=== PATIENT | male | born 1930 | race Caucasian/White ===

== ENCOUNTER 2018-06-16 15:00 | Inpatient (IN) ==
--- NOTE | 2018-06-16 15:53 | Emergency Department Note ---
Disposition Clinical Impression: Acute CHF, COPD (chronic obstructive pulmonary disease) Disposition: Admitted As Inpatient Condition: Fair Time of Disposition: 17:05 General Adult HPI - General Chief complaint: ED Shortness of Breath/Dyspnea Stated complaint: QUINTON Time Seen by Provider: 06/16/18 15:09 Source: patient Mode of arrival: ambulatory Limitations: no limitations Nursing Notes Reviewed: Yes Vital Signs Reviewed: Yes - History of Present Illness HPI Narrative: Patient is an 87-year-old male with a past medical history of COPD, CABG 2, 1 cardiac stent and chronically on 2 L nasal cannula presents to the emergency department for evaluation of 2 weeks of coughing with no improvement. Patient states that he was seen one week ago by an urgent care and given a Z-Sukhwinder and to ld it was acute bronchitis however his symptoms have not improved. The patient states that he has this continuous cough that will not stop due to like a scratch in his throat. He denies any fevers, states the cough intermittently brings up phlegm, denies increased oxygen requirements, denies chest pain, denies worsening lower extremity edema. States that he frequently has episodes of acute bronchitis due to the condition of his lungs and sees Dr. Rosario for pulmonology. Pain Scale: 3 - Related Data Previous Rx's Medication Instructions Recorded Albuterol Sulfate [Albuterol 4 puff IH Q4HR #1 hfa.aer.ad 09/09/16 Inhaler] Levofloxacin [Levaquin] 750 mg PO DAILY #5 tablet 09/09/16 predniSONE [PredniSONE] 60 mg PO ONCE 5 Days tablet 09/09/16 Albuterol Sulfate [Albuterol 2 puff IH Q6HR #1 inh 06/11/17 Inhaler] Azithromycin [Zithromax] 250 mg PO DAILY #6 tablet 06/11/17 predniSONE [PredniSONE] 60 mg PO DAILY #15 tablet 06/11/17 Allergies Allergy/AdvReac Type Severity Reaction Status Date / Time morphine Allergy Hives Verified 06/16/18 17:55 Hydromorphone [From Dilaudid] AdvReac Vomiting Verified 06/16/18 17:56 All systems ED: reviewed and negative except as stated. Review of Systems: As Per HPI Constitutional: Denies: fever, chills Cardiovascular: Denies: chest pain, palpitations Respiratory: Reports: cough, sputum production. Denies: dyspnea, wheezes Gastrointestinal: Denies: abdominal pain, nausea, vomiting Musculoskeletal: Denies: back pain Integumentary: Denies: rash Past Medical History - Past Medical History Attestation: Yes The following information was validated with the patient. Medical history: Reports: COPD, coronary artery disease, diabetes, hyperlipidemia, hypertension, myocardial infarction, renal disease Psychiatric history: Reports: no psych history - Social History Smoking Status: Never smoker Smokeless Tobacco Status: No Alcohol use: Reports: none Drug use: Reports: none Physical Exam CONSTITUTIONAL: A&O X 3, in no apparent distress. Patient saturation is 95% on 2LNC HEAD: Normocephalic; atraumatic EYES: PERRL, no scleral icterus NOSE: The nose is normal in appearance without rhinorrhea NECK: No JVD or distended neck veins RESP: Normal chest excursion with respiration; patient has mild wheezing throughout and crackles in the RLL. CARD: Regular rhythm, without murmurs, rub or gallop ABD: Non-distended; non-tender, soft, without rigidity, rebound or guarding,no pulsatile mass CHEST: No pain with palpation SKIN: Normal for age and race; warm and dry without diaphoresis ; no apparent lesions EXTREMITIES: Pulses are 2 plus and equal times 4 extremities, mild pitting edema bilaterally, slightly worse in the RLE. - General Limitations: no limitations General appearance: alert Course Course Narrative: Patient presents for primarily evaluation of a cough that has been going on for 2 weeks and is refractory to antibiotics. On exam the patient did have mild wheezing throughout, however he does not appear to be in respiratory distress. Crackles were appreciated in the patient's right lower lung base, however the pa tiedex states that this is a chronic finding and this is usually commented on during his physical exams and nothing new. The patient also states that he usually has edema in his lower chin these and is not worse than usual and that his right extremity is usually more edematous than the left so there are no new changes there. Therefore no new clinical exam findings. Patient does have an active cough when in the room that sounds dry in nature. Plan at this time is to evaluate him for any cardiac ideology of his symptoms given his history of CABG and stents. As well as a COPD history. - Reevaluation(s) Reevaluation #1: Patient chest x-ray shows mild pulmonary vascular congestion which is worsened from prior study. His BNP is slightly elevated which is typically normal. The setting of the patient's current presentation plan is times a treat him for COPD as well as CHF. The patient was even IV dose of Lasix. He received steroids as well as a dose of antibiotics for COPD exacerbation. Patient will come in the hospital for further management. Discussed patient's case with the hospitalist and she agrees to accept the patient. Time: 17:24 Vital Signs Temperature 97.7 F 06/16/18 15:05 Pulse Rate 77 06/16/18 15:05 Respiratory Rate 20 06/16/18 15:05 Blood Pressure 153/78 06/16/18 15:05 O2 Sat by Pulse Oximetry 89 06/16/18 15:05 Temperature 97.7 F 06/16/18 15:10 Pulse Rate 82 06/16/18 17:49 Respiratory Rate 18 06/16/18 17:49 Blood Pressure 168/72 06/16/18 17:49 O2 Sat by Pulse Oximetry 96 06/16/18 17:49 Oxygen Delivery Oxygen Delivery Nasal Cannula Medical Decision Making - Medical Records Medical records reviewed: Yes I reviewed the patient's medical records. - Lab Data Lab results reviewed: Yes I reviewed the patient's lab results. Result diagrams: 06/16/18 15:41 06/16/18 15:41 Lab Results 06/16/18 06/16/18 06/16/18 Range/Units 15:41 15:41 15:41 WBC 5.4 (4.3-11.1) K/mcL RBC 3.56 L (4.19-5.50) M/mcL Hgb 10.9 L (12.9-16.9) g/dL Hct 34.6 L (37.5-50.1) % MCV 97.2 (83.0-100.0) fL MCH 30.6 (28.0-33.3) pg MCHC 31.5 L (31.6-35.5) g/dL RDW 14.2 (11.5-14.5) % Plt Count 231 (140-400) K/mcL MPV 10.2 (9.4-12.4) fL Immature Gran % 0.9 (0-4) % Seg Neutrophils % 65.2 % Lymphocytes % 16.7 % Monocytes % 10.0 % Eosinophils % 5.9 % Basophils % 1.3 % Neutrophils # 3.5 (1.6-8.9) K/mcL Lymphocytes # 0.9 (0.6-4.6) K/mcL Monocytes # 0.5 (0.0-1.3) K/mcL Eosinophils # 0.3 (0.0-0.6) K/mcL Basophils # 0.1 (0.0-0.2) K/mcL Sodium 140 (136-145) mEq/L Potassium 4.4 (3.5-5.1) mEq/L Chloride 100 (98-107) mEq/L Carbon Dioxide 28 (23-29) mEq/L BUN 38 H (8-23) mg/dL Creatinine 2.67 H (0.70-1.30) mg/dL Est GFR ( Amer) 28 L (> 60) Est GFR (Non-Af Amer) 23 L (> 60) BUN/Creatinine Ratio 14 (6-26) Glucose 174 H (70-105) mg/dL Calculated Osmolality 303 H (280-300) Calcium 9.2 (8.6-10.3) mg/dL Troponin I < 0.03 (< 0.04) ng/mL B-Natriuretic Peptide 361 H (Less than 100) pg/mL - Radiology Data Radiology results reviewed: Yes I reviewed the patient's radiology results. Chest X-Ray 06/16/18 15:20 IMPRESSION: 1. Findings are most suggestive of pulmonary interstitial edema with trace bilateral pleural effusions. Correlation with volume status is recommended. 2. Persistently enlarged cardiomediastinal silhouette. D/ / Wagner Perla MD / Wagner Perla MD Interpreting Provider: Wagner Perla MD - EKG Data EKG #1 EKG attestation: Yes I reviewed and interpreted this EKG. EKG results narrative: EKG done at 15:19 shows sinus rhythm at a rate of 73 bpm. Normal axis. Intervals within normal limits. Patient does have very minimal elevations in the inferior leads, however when impaired to old EKG on June [id number] this was within normal limits. Attestation Statement - Attestation Attestation: I, Douglas Kendrick DO, examined this patient [id number] and my medical decision-making was reviewed with Dr. Mega Read, Resident Physician. I agree with the documented findings, disposition and treatment plan as described except to the extent set forth below. Please see my progress notes for details.
[2018-06-16] MEDS ORDERED: Ipratropium/Albuterol Neb 3 ML IH ONE (16:07)
[2018-06-16 16:13] LABS: Basophils # 0.1 K/mcL (0.0-0.2); Basophils % 1.3 %; Eosinophils # 0.3 K/mcL (0.0-0.6); Eosinophils % 5.9 %; Hematocrit 34.6 % (37.5-50.1); Hemoglobin 10.9 g/dL (12.9-16.9); Immature Granulocytes % 0.9 % (0-4); Lymphocytes # 0.9 K/mcL (0.6-4.6); Lymphocytes % 16.7 %; Mean Corpuscular HGB Conc 31.5 g/dL (31.6-35.5); Mean Corpuscular Hemoglobin 30.6 pg (28.0-33.3); Mean Corpuscular Volume 97.2 fL (83.0-100.0); Mean Platelet Volume 10.2 fL (9.4-12.4); Monocytes # 0.5 K/mcL (0.0-1.3); Neutrophils # 3.5 K/mcL (1.6-8.9); Platelet Count 231 K/mcL (140-400); Red Blood Count 3.56 M/mcL (4.19-5.50); Red Cell Distribution Width 14.2 % (11.5-14.5); Segmented Neutrophils % 65.2 %
[2018-06-16 16:29] LABS: BUN/Creatinine Ratio 14 (6-26); Blood Urea Nitrogen 38 mg/dL (8-23); Calcium 9.2 mg/dL (8.6-10.3); Carbon Dioxide 28 mEq/L (23-29); Chloride 100 mEq/L (98-107); Glucose 174 mg/dL (70-105); Osmolality,Calculated 303 (280-300); Potassium 4.4 mEq/L (3.5-5.1); Sodium 140 mEq/L (136-145); eGFR For Non-African Americans 23 (> 60)
[2018-06-16 16:31] LABS: Troponin I < 0.03 ng/mL (< 0.04)
--- NOTE | 2018-06-16 16:45 | Emergency Department Note ---
Disposition Clinical Impression: Acute CHF, COPD (chronic obstructive pulmonary disease) Disposition: Admitted As Inpatient Condition: Fair Time of Disposition: 17:59 General Adult HPI - General Chief complaint: ED Shortness of Breath/Dyspnea Stated complaint: QUINTON Time Seen by Provider: 06/16/18 15:09 Source: patient Mode of arrival: ambulatory Limitations: no limitations - History of Present Illness Pain Scale: 3 - Related Data Previous Rx's Medication Instructions Recorded Albuterol Sulfate [Albuterol 4 puff IH Q4HR #1 hfa.aer.ad 09/09/16 Inhaler] Levofloxacin [Levaquin] 750 mg PO DAILY #5 tablet 09/09/16 predniSONE [PredniSONE] 60 mg PO ONCE 5 Days tablet 09/09/16 Albuterol Sulfate [Albuterol 2 puff IH Q6HR #1 inh 06/11/17 Inhaler] Azithromycin [Zithromax] 250 mg PO DAILY #6 tablet 06/11/17 predniSONE [PredniSONE] 60 mg PO DAILY #15 tablet 06/11/17 Allergies Allergy/AdvReac Type Severity Reaction Status Date / Time morphine Allergy Hives Verified 06/16/18 17:55 Hydromorphone [From Dilaudid] AdvReac Vomiting Verified 06/16/18 17:56 Constitutional: Denies: fever, chills Cardiovascular: Denies: chest pain, palpitations Respiratory: Reports: cough, sputum production. Denies: dyspnea, wheezes Gastrointestinal: Denies: abdominal pain, nausea, vomiting Musculoskeletal: Denies: back pain Integumentary: Denies: rash Past Medical History - Past Medical History Medical history: Reports: COPD, coronary artery disease, diabetes, hyperlipidemia, hypertension, myocardial infarction, renal disease Psychiatric history: Reports: no psych history - Social History Smoking Status: Never smoker Smokeless Tobacco Status: No Alcohol use: Reports: none Drug use: Reports: none Physical Exam - General Limitations: no limitations General appearance: alert Course Vital Signs Temperature 97.7 F 06/16/18 15:05 Pulse Rate 77 06/16/18 15:05 Respiratory Rate 20 06/16/18 15:05 Blood Pressure 153/78 06/16/18 15:05 O2 Sat by Pulse Oximetry 89 06/16/18 15:05 Temperature 97.7 F 06/16/18 15:10 Pulse Rate 82 06/16/18 17:49 Respiratory Rate 18 06/16/18 17:49 Blood Pressure 168/72 06/16/18 17:49 O2 Sat by Pulse Oximetry 96 06/16/18 17:49 Oxygen Delivery Oxygen Delivery Nasal Cannula Medical Decision Making - Lab Data Result diagrams: 06/16/18 15:41 06/16/18 15:41 Lab Results 06/16/18 06/16/18 06/16/18 Range/Units 15:41 15:41 15:41 WBC 5.4 (4.3-11.1) K/mcL RBC 3.56 L (4.19-5.50) M/mcL Hgb 10.9 L (12.9-16.9) g/dL Hct 34.6 L (37.5-50.1) % MCV 97.2 (83.0-100.0) fL MCH 30.6 (28.0-33.3) pg MCHC 31.5 L (31.6-35.5) g/dL RDW 14.2 (11.5-14.5) % Plt Count 231 (140-400) K/mcL MPV 10.2 (9.4-12.4) fL Immature Gran % 0.9 (0-4) % Seg Neutrophils % 65.2 % Lymphocytes % 16.7 % Monocytes % 10.0 % Eosinophils % 5.9 % Basophils % 1.3 % Neutrophils # 3.5 (1.6-8.9) K/mcL Lymphocytes # 0.9 (0.6-4.6) K/mcL Monocytes # 0.5 (0.0-1.3) K/mcL Eosinophils # 0.3 (0.0-0.6) K/mcL Basophils # 0.1 (0.0-0.2) K/mcL Sodium 140 (136-145) mEq/L Potassium 4.4 (3.5-5.1) mEq/L Chloride 100 (98-107) mEq/L Carbon Dioxide 28 (23-29) mEq/L BUN 38 H (8-23) mg/dL Creatinine 2.67 H (0.70-1.30) mg/dL Est GFR ( Amer) 28 L (> 60) Est GFR (Non-Af Amer) 23 L (> 60) BUN/Creatinine Ratio 14 (6-26) Glucose 174 H (70-105) mg/dL Calculated Osmolality 303 H (280-300) Calcium 9.2 (8.6-10.3) mg/dL Troponin I < 0.03 (< 0.04) ng/mL B-Natriuretic Peptide 361 H (Less than 100) pg/mL Attestation Statement - Attestation Attestation: I, Douglas Marks DO, examined this patient [id number] and my medical deci tae-making was reviewed with Dr. Mega Read, Resident Physician. I agree with the documented findings, disposition and treatment plan as described except to the extent set forth below. Please see my progress notes for details. 87-year-old male presents to the emergency room for evaluation of cough. Patient has had a persistent cough for home for the last 24-48 hours. He descri bes this is identical to every other fall. Every year at the site time the patient gets a cough secondary to the weather changes and turning on the heat in his home. He does have a history of COPD that requires 2 L of oxygen at home. He has not felt like he needed any more oxygen. He denies any productive cough or sputum. Denies any fevers. He has had intermittent chills but never has collected his temperature. Patient is otherwise clinically stable on presentation here. Vital signs do so slight tachypnea during conversation but he is resting in the bed he has normal pulse ox as well as respirations. Patient does not want to be admitted if possible. He says that every time this happens he gets an antibiotic as well as steroids and he goes home without any problem. He has never required admission for his COPD or emphysema. Head is atraumatic pupils are equal and reactive oropharynx is patent. No stridor no trismus. Trachea is midline. No cervical lymphadenopathy. No meningeal symptoms. Full range of motion the neck is noted. Lungs are diminished bilaterally but appropriate air movement is noted. Heart is regular. Abdomen is soft nontender nondistended no guarding no rigidity no peritoneal symptoms. No pulsatile masses are noted. No signs of pitting edema or swelling in the lower extremities. Patient says that he feels completely comfortable but just needs something to control his cough at home so that he is not up all night long. Breathing treatments to be ordered here along with first dose of IV steroids. Patient also have chest x-ray EKG CBC chemistry troponin and BNP collected here in the emergency room. Patient does have a significant cardiac history including 5 vessel bypass over 2 different surgical procedures. Disposition pending workup and treatment course. Patient will be ambulated prior to leaving our department. See detailed documentation of the physical exam, medical intervention, medical decision-making and disposition in the resident physician's note. No critical care applied to the patient's treatment course at this time. 1700 Patient's BNP is elevated. Patient has never had an elevated BNP before. His chest x-ray looks as if he has significant fluid buildup worse in the left lung compared to the right. Patient did respond appropriately to the breathing treatment here. After lengthy discussion it was determined that the patient lives far from the hospital and the family has some difficulty with returning to the emergency room. They feel more comfortable with him being admitted at this time. Appears to be possible bronchitis, CHF exacerbation, COPD exacerbation. Steroids will be provided here in the emergency room as well as first dose of IV antibiotics. Blood cultures will be collected. Patient does not show any acute signs of sepsis at this point. Clinical evaluation is most consistent with the above-described issues. IV Lasix will be given. Patient does have chronic renal insufficiency and takes Lasix at home and this is an appropriate dosages in the emergency room at a one-time implementation. Patient is otherwise clinically stable and admission process to be established.
[2018-06-16] MEDS ORDERED: Levofloxacin 750 MG/150 ML 750 MG/150 ML BAG IVPB ONE (17:03)
[2018-06-16] MEDS ORDERED: methylPREDNISolone 125 MG/2 ML VIAL IVP STA (17:03)
[2018-06-16] MEDS ORDERED: Furosemide 40 MG/4 ML VIAL IVP ONE (17:24)
[2018-06-16] MEDS ORDERED: Naloxone 0.4 MG/ML INJ IVP PRN ×2 (17:40→17:42)
[2018-06-16] MEDS ORDERED: traMADol 50 MG TABLET PO PRN (17:42)
[2018-06-16] MEDS ORDERED: Acetaminophen 325 MG TABLET PO PRN (17:42)
[2018-06-16] MEDS ORDERED: Ipratropium/Albuterol Neb 3 ML IH PRN (17:44)
[2018-06-16] MEDS ORDERED: D5% in Water 1,000 ML IVC PRN (17:45)
[2018-06-16] MEDS ORDERED: *HR* Dextrose 50 % in Water (Syg) 50 ML SYRINGE IVP PRN (17:45)
[2018-06-16] MEDS ORDERED: Dextrose Gel 15 GM/37.5 ML TUBE PO PRN ×2 (17:45)
--- NOTE | 2018-06-16 17:58 | Internal Med History&Physical ---
Date of Encounter: 06/16/18 Time of Encounter: 17:54 Internal Medicine - H&P: HPI Admitted From: Home Plans for Post Hospital Care: Home History of present illness: Mr. Hunter is a 87 year old male with a past medical history of COPD, CABG 2, 1 cardiac stent and chronically on 2 L nasal cannula, CKD, CHF, DM presents to the emergency department for evaluation of 2 weeks of coughing with no improvement. Patient states that he was seen one week ago at an urgent care and given a Z-Sukhwinder and told it was acute bronchitis however his symptoms have not improved. The patient states that he has this continuous cough that will not stop due to like a scratch in his throat. He denies any fevers, states the cough intermittently brings up phlegm, denies increased oxygen requirements, denies chest pain, denies worsening lower extremity edema. States that he frequently has episodes of acute bronchitis due to the condition of his lungs and sees Dr. Rosario for pulmonology. At the ED, his vital signs were stable, afebrile. CXR showed possible pulmonary edema and peural effusion. Received IV Solu Medro and Duoneb with relief of symptoms. We will admit him for further evaluation and treatment. Past Med Surg Social Fam HX - Past Medical History Medical history: COPD, coronary artery disease, diabetes, hyperlipidemia, hypertension, myocardial infarction, renal disease Psychiatric history: no psych history - Past Surgical History Additional surgical history: CABG X2 - Social History Smoking Status: Never smoker Smokeless Tobacco Status: No Alcohol use: none Drug use: none Internal Medicine - H&P: Meds Albuterol Sulfate [Albuterol Inhaler] 4 puff IH Q4HR #1 hfa.aer.ad 09/09/16 [Rx] Levofloxacin [Levaquin] 750 mg PO DAILY #5 tablet 09/09/16 [Rx] predniSONE [PredniSONE] 60 mg PO ONCE 5 Days tablet 09/09/16 [Rx] Albuterol Sulfate [Albuterol Inhaler] 2 puff IH Q6HR #1 inh 06/11/17 [Rx] Azithromycin [Zithromax] 250 mg PO DAILY #6 tablet 06/11/17 [Rx] predniSONE [PredniSONE] 60 mg PO DAILY #15 tablet 06/11/17 [Rx] Allergy/AdvReac Type Severity Reaction Status Date / Time morphine Allergy Hives Verified 06/16/18 17:55 Hydromorphone [From Dilaudid] AdvReac Vomiting Verified 06/16/18 17:56 All Systems PM: A 10-system review of systems was performed and is negative for pertinent f indings except as documented above in the HPI. - Constitutional Additional comments: REVIEW OF SYSTEMS: CONSTITUTIONAL: No weight loss, fever, chills, weakness or fatigue. HEENT: Eyes: No visual loss, blurred vision, double vision or yellow sclerae. Ears, Nose, Throat: No hearing loss, sneezing, congestion, runny nose or sore throat. SKIN: No rash or itching. CARDIOVASCULAR: see HPI. RESPIRATORY: see HPI. GASTROINTESTINAL: No anorexia, nausea, vomiting or diarrhea. No abdominal pain or blood. GENITOURINARY: No dysuria, urgency, or frequency. NEUROLOGICAL: No headache, dizziness, syncope, paralysis, ataxia, numbness or tingling in the extremities. No change in bowel or bladder control. MUSCULOSKELETAL: No muscle, back pain, joint pain or stiffness. HEMATOLOGIC: No anemia, bleeding or bruising. LYMPHATICS: No enlarged nodes. No history of splenectomy. PSYCHIATRIC: No history of depression or anxiety. ENDOCRINOLOGIC: No reports of sweating, cold or heat intolerance. No polyuria or polydipsia. - Constitutional Vitals: Temp Pulse Resp BP Pulse Ox 97.7 F 82 18 168/72 96 06/16/18 15:10 06/16/18 17:49 06/16/18 17:49 06/16/18 17:49 06/16/18 17:49 General appearance: Present: cooperative, A&O X 3, answers questions appropriately Exam: PHYSICAL EXAMINATION: GENERAL APPEARANCE: The patient is alert, oriented and in no acute distress. HEENT: Head is normocephalic. The sinuses are nontender. Pupils are equal and reactive. The nares are patent. Oropharynx clear without lesions. NECK: Supple without lymphadenopathy. HEART: Regular rate and rhythm. LUNGS: bilateral crackle noted and occasional wheezing. ABDOMEN: Soft, nontender, nondistended with good bowel sounds heard. Inguinal area is normal. EXTREMITIES: 1+ pitting edema. NEUROLOGICAL: Gross nonfocal. SKIN: Warm and dry without any rash. Internal Med - H&P Results - Labs CBC & Chem 7: 06/16/18 15:41 06/16/18 15:41 Labs: Short CBC 06/16/18 Range/Units 15:41 WBC 5.4 (4.3-11.1) K/mcL Hgb 10.9 L (12.9-16.9) g/dL Hct 34.6 L (37.5-50.1) % Plt Count 231 (140-400) K/mcL Neutrophils # 3.5 (1.6-8.9) K/mcL BMP 06/16/18 15:41 Sodium 140 Potassium 4.4 Chloride 100 Carbon Dioxide 28 BUN 38 H Creatinine 2.67 H Glucose 174 H Calcium 9.2 Cardiac Enzymes 06/16/18 Range/Units 15:41 Troponin I < 0.03 (< 0.04) ng/mL - Impressions ITS Impressions Chest X-Ray 06/16/18 15:20 IMPRESSION: 1. Findings are most suggestive of pulmonary interstitial edema with trace bilateral pleural effusions. Correlation with volume status is recommended. 2. Persistently enlarged cardiomediastinal silhouette. D/ / Wagner Perla MD / Wagner Perla MD Interpreting Provider: Wagner Perla MD - Assessment and plan (1) COPD (chronic obstructive pulmonary disease) Current Visit: Yes Status: Acute Assessment and plan: 87-year-old male with past medical history of COPD, CHF, CKD, diabetes, CAD status post CABG and stent placement, and hypertension presented with two-week history of cough and shortness of breath. Diffuse wheezing noted bilaterally on physical exam. Chest x-ray showed possible pulmonary edema. He is mildly volume overloaded on physical exam. - Patient respiratory distress is likely due to combined etiology with COPD and a CHF exacerbation. - Unclear the exact trigger for COPD exacerbation, he was treated with oral antibiotics (azithromycin and Levaquin) but symptoms fail to improve. We will obtain blood culture and sputum culture, and empirically treat with Rocephin and azithromycin IV, as community-acquired pneumonia. - Continue standard treatment for COPD including IV steroids, short acting and long-acting bronchodilators (duoneb and symbicort). - Continue home O2, Flu vaccine if not done. Qualifiers: COPD type: unspecified COPD Qualified Code(s): J44.9 - Chronic obstructive pulmonary disease, unspecified (2) CHF (congestive heart failure) Current Visit: Yes Status: Acute Assessment and plan: History of CHF, takes Lasix 40 mg by mouth at home. Slightly elevated BNP on admission. Last echocardiogram is about 3 years ago. We will repeat echo, increase Lasix dose to 40 mg twice a day IV. Continue home medications. Strict I's and O's, fluid restriction, daily weight, low-salt diet. Qualifiers: Heart failure type: diastolic Heart failure chronicity: acute on chronic Qualified Code(s): I50.33 - Acute on chronic diastolic (congestive) heart failure (3) CKD (chronic kidney disease) stage 4, GFR 15-29 ml/min Current Visit: No Status: Chronic Assessment and plan: Creatinine seems at the baseline, patient still produces urine, he follows up with nephrology regularly. We will consult renal. (4) Diabetes mellitus Current Visit: No Status: Chronic Assessment and plan: Hold all the oral agents, started patient on insulin sliding scale. Qualifiers: Diabetes mellitus type: type 2 Diabetes mellitus residential insulin use: without residential use Diabetes mellitus complication status: with kidney complications Diabetes mellitus complication detail: with chronic kidney disease Chronic kidney disease stage: stage 4 (severe) Qualified Code(s): E11.22 - Type 2 diabetes mellitus with diabetic chronic kidney disease; N18.4 - Chronic kidney disease, stage 4 (severe) (5) CAD (coronary artery disease) Current Visit: No Status: Chronic Assessment and plan: No chest pain, troponin negative, continue telemetry monitoring, and continue home medications. Qualifiers: Coronary Disease-Associated Artery/Lesion type: [place] artery [place] vs. transplanted heart: [place] heart Associated angina: without angina Qualified Code(s): I25.10 - Atherosclerotic heart disease of [place] coronary artery without angina pectoris (6) HTN (hypertension) Current Visit: No Status: Chronic Assessment and plan: BP controlled, continue monitoring, continue home medications. Qualifiers: Hypertension type: essential hypertension Qualified Code(s): I10 - Essential (primary) hypertension (7) DVT prophylaxis Current Visit: Yes Status: Acute Assessment and plan: Heparin subcutaneous. - Time Spent With Patient Total time spent is 90 mins, greater than 50% in coordination of care (as documented) at patient's floor/unit and/or counseling patient. Greater than 35 minutes
[2018-06-16] MEDS: Azithromycin 250 MG in D5% in Water 250 ML IVPB SCH (19:39)
[2018-06-16] MEDS: Ipratropium/Albuterol Neb 3 ML IH SCH ×2 (20:03→23:46)
[2018-06-16] MEDS: Budesonide/Formoterol 80/4.5 MDI IH SCH (20:03)
[2018-06-16] MEDS: *HR* Heparin 5,000 UNIT/ML VIAL SQ SCH (20:50)
[2018-06-16] MEDS: Furosemide 40 MG/4 ML VIAL IVP SCH (20:51)
[2018-06-16] MEDS: cefTRIAXone 1,000 MG in Water for inj. (sterile) 20 ML 10 ML IVP SCH (20:51)
[2018-06-16] MEDS ORDERED: Insulin LISPRO 300 UNITS/3 ML VIAL SQ SCH (21:00)
[2018-06-17] MEDS: MethylPREDNISolone 40 MG/ML VIAL IVP SCH ×2 (01:50→07:36)
[2018-06-17] MEDS: Ipratropium/Albuterol Neb 3 ML IH SCH ×5 (04:38→19:59)
[2018-06-17 05:20] LABS: Basophils % 0.5 %; Hematocrit 33.9 % (37.5-50.1); Hemoglobin 10.7 g/dL (12.9-16.9); Immature Granulocytes % 0.7 % (0-4); Lymphocytes # 0.4 K/mcL (0.6-4.6); Lymphocytes % 10.3 %; Mean Corpuscular HGB Conc 31.6 g/dL (31.6-35.5); Mean Corpuscular Hemoglobin 30.2 pg (28.0-33.3); Mean Corpuscular Volume 95.8 fL (83.0-100.0); Mean Platelet Volume 10.1 fL (9.4-12.4); Monocytes # 0.1 K/mcL (0.0-1.3); Monocytes % 1.5 %; Neutrophils # 3.6 K/mcL (1.6-8.9); Platelet Count 224 K/mcL (140-400); Red Blood Count 3.54 M/mcL (4.19-5.50)
[2018-06-17 05:37] LABS: Calcium 9.4 mg/dL (8.6-10.3); Magnesium 1.9 mg/dL (1.6-2.6); Potassium 4.4 mEq/L (3.5-5.1)
[2018-06-17] MEDS: *HR* Heparin 5,000 UNIT/ML VIAL SQ SCH ×2 (06:50→17:39)
[2018-06-17] MEDS: Metoprolol XL (24 HR) Succ 50 MG TAB.ER.24H PO SCH (07:36)
[2018-06-17] MEDS: Isosorbide MONOnitrate (24 HR) 30 MG TAB.ER.24H PO SCH (07:36)
[2018-06-17] MEDS: amLODIPine 5 MG TABLET PO SCH (07:36)
[2018-06-17] MEDS: Furosemide 40 MG/4 ML VIAL IVP SCH ×2 (07:36→17:38)
[2018-06-17] MEDS: Aspirin 81 MG TAB.CHEW PO SCH (07:37)
[2018-06-17] MEDS: Cholecalciferol (D-3) 1,000 UNIT TABLET PO SCH (07:37)
[2018-06-17] MEDS: Insulin LISPRO 300 UNITS/3 ML VIAL SQ SCH ×4 (07:38→21:33)
[2018-06-17] MEDS: Budesonide/Formoterol 80/4.5 MDI IH SCH ×2 (08:13→19:59)
--- NOTE | 2018-06-17 08:50 | Nephrology Consult Note ---
Date of Encounter: 06/17/18 Time of Encounter: 10:00 Assessment and Plan (1) CKD (chronic kidney disease) stage 4, GFR 15-29 ml/min Current Visit: No Status: Chronic This patient has a history of chronic kidney disease stage IV, which is stable at his baseline based upon the labs available in [facility]. I see that his existing computer technology trainer is with the former [employer], who withdrew the rounding privileges at [facility] and no longer round in the hospital. I recommend following a renal protective strategy including strict I's and O's, daily weights, renal diet, avoidance of excessive nephrotoxins while hospitalized, and outpatient nephrology follow up with his existing computer technology trainer. He and his asked me if I see outpatients for Nephrology in [place], [place], (which I do), and he voiced interest in changing Nephrologists. He is at his renal baseline. Will follow along with you; of note, my colleague Dr. Mancini will be on-call starting tomorrow. Thank you. History of Present Illness - Reason for Consult Consult date: 06/17/18 Chronic Kidney Disease Requesting physician: Patricia Marques - Chief Complaint Hx of CKD stage IV - History of Present Illness Aaron Hunetr is a very pleasant 87 y/o WM gentleman with a pmh of CKD, which is why Nephrology was consulted. He was getting ready to under TTE and the soil sort worker was preparing to set up but she let me proceed with an interview and examination. His was present and she reported that he has seen Dr. Corral in the past, but she voiced concern that his appt times have been "changing". He denied taking NSAIDs, and he did not affirm dysuria or flank pain. FHx: he did not affirm having relatives with ESRD. Past Med Surg Social Fam HX - Past Medical History Medical history: COPD, coronary artery disease, diabetes, hyperlipidemia, hypertension, myocardial infarction, renal disease Psychiatric history: no psych history - Past Surgical History Surgical History: cholecystectomy Additional surgical history: CABG X2, bilateral knee replacement, cardiac stent - Social History Smoking Status: Never smoker Smokeless Tobacco Status: No Alcohol use: none Drug use: none - Family History Mother Hx Family Cardiac Disorders: Yes Medications and Allergies Albuterol Sulfate [Proair Hfa] 2 puff IH DAILY PRN 06/16/18 [History] Allopurinol [Zyloprim 100 MG] 200 mg PO DAILY 06/16/18 [History] Aspirin [Lo-Dose Aspirin EC] 81 mg PO DAILY 06/16/18 [History] Cholecalciferol (Vitamin D3) [Vitamin D] 2,000 unit PO DAILY 06/16/18 [History] Fluticasone/Salmeterol [Advair Hfa 115-21 Mcg Inhaler] 2 puff IH BID 06/16/18 [History] Furosemide [Lasix] 40 mg PO DAILY 06/16/18 [History] Isosorbide DInitrate [Isosorbide Dinitrate] 30 mg PO DAILY 06/16/18 [History] Losartan [Cozaar] 50 mg PO DAILY 06/16/18 [History] Pioglitazone [Actos] 30 mg PO DAILY 06/16/18 [History] Simvastatin [Zocor] 40 mg PO HS 06/16/18 [History] amLODIPine [Norvasc] 10 mg PO DAILY 06/16/18 [History] glipiZIDE [Glipizide ER] 10 mg PO BID 06/16/18 [History] Metoprolol Succinate [Toprol Xl] 100 mg PO DAILY 06/17/18 [History] Allergy/AdvReac Type Severity Reaction Status Date / Time morphine Allergy Hives Verified 06/16/18 17:55 Hydromorphone [From Dilaudid] AdvReac Vomiting Verified 06/16/18 17:56 Review of Systems All Systems: reviewed and no additional remarkable complaints except as stated Exam - Vital Signs Vital signs: Initial Vital Signs Temp Pulse Resp BP Pulse Ox 97.7 F 77 20 153/78 89 06/16/18 15:05 06/16/18 15:05 06/16/18 15:05 06/16/18 15:05 06/16/18 15:05 Vital Signs - Last 8 Hours Temp Pulse Resp BP Pulse Ox 06/17/18 08:13 16 94 06/17/18 07:27 98.7 F 89 16 113/57 94 06/17/18 04:38 16 95 06/17/18 04:29 98.5 F 76 16 137/85 98 Intake and Output 06/17/18 06/17/18 06/17/18 00:59 07:59 15:59 Intake Total Output Total Balance Intake: Oral Output: Urine Other: Meal Percent of Meal Consumed Weight Blood Glucose* - General Appearance General appearance: well-developed, well-nourished, appears started age EENT: ATNC, PERRL, mucous membranes moist Neck: supple Respiratory: clear (but diminished breath sounds bilaterally) Cardiology: edema (trace ankle edema), regular rate, regular rhythm, normal S1, normal S2 Gastrointestinal: normoactive bowel sounds, no tenderness, no guarding Integumentary: no rash, warm and dry Neurologic: no focal deficit, no asterixis, alert and oriented x3 Musculoskeletal: no deformities, no erythema, no cyanosis Psychiatric: mood/affect appropriate, cooperative Results - Lab Results 06/18/18 04:24 06/18/18 04:24 Most recent lab results Calcium 9.4 mg/dL (8.6-10.3) 06/17/18 04:50 Magnesium 1.9 mg/dL (1.6-2.6) 06/17/18 04:50 I reviewed the labs, vitals, imaging, progress notes, med list. Consult Discharge Plan - Plan Referrals: Dago London DO [Primary Care Provider] -
[2018-06-17] MEDS ORDERED: Perflutren Lipid Microsphere 1.3 ML in 0.9 % Sodium Chloride 8.7 ML IVP ONE (09:47)
--- NOTE | 2018-06-17 12:34 | Internal Med Progress Note ---
Hospitalist Progress Note - Encounter Date of Encounter: 06/17/18 Time of Encounter: 12:32 - Subjective Interval History: Seen and examined at bedside. Patient is new to me, information obtained from chart review and patient report. Says he feels a little better but still complaining of nonstop, nonproductive cough and a sore throat. Says swelling in legs is significantly improved. No chest pain or shortness of breath at rest however he complains of shortness of breath and worse cough with any kind of activity. - Exam Vitals: Temp Pulse Resp BP Pulse Ox 97.9 F 95 16 126/57 96 06/17/18 11:28 06/17/18 11:28 06/17/18 11:28 06/17/18 11:28 06/17/18 11:28 Exam: PHYSICAL EXAMINATION: GENERAL APPEARANCE: The patient is alert, oriented and in no acute distress. HEENT: Head is normocephalic. The sinuses are nontender. Pupils are equal and reactive. The nares are patent. Oropharynx clear without lesions. NECK: Supple without lymphadenopathy. HEART: Regular rate and rhythm. LUNGS: bilateral lower lobes with rales posteriorly and occasional wheezing. ABDOMEN: Soft, nontender, nondistended with good bowel sounds heard. Inguinal area is normal. EXTREMITIES: no edema NEUROLOGICAL: Gross nonfocal. SKIN: Warm and dry without any rash. - Assessment and Plan (1) CHF (congestive heart failure) Current Visit: Yes Status: Acute Assessment and Plan: history of CHF, on Lasix at home. Presented with SOB and lower extremity edema. BNP 361. 06/16/2018 TTE with EF 55% and normal systolic function. CXR with pulmonary vascular edema and small bilateral pleural effusions. Holding home Lasix, continue IV Lasix and closely monitor renal function. Strict I's and O's, fluid restriction, daily weight, low-salt diet. Chest CT pending (2) COPD (chronic obstructive pulmonary disease) Current Visit: Yes Status: Acute Assessment and Plan: per hx. Wears O2 ATC at home. Presented with persistent SOB and cough for 2 weeks prior to arrival. Was treated for COPD exacerbation/URI outpatient with ATB and steroids with no improvement in symptoms. CXR with pulmonary edema as noted above. Remains symptomatic with nonproductive cough and wheezing. Cont IV ceftriaxone, azithromycin, steroids and nebs. Respiratory PCR, urinary antigens pending. (3) CKD (chronic kidney disease) stage 4, GFR 15-29 ml/min Current Visit: No Status: Chronic Assessment and Plan: per hx. Renal appears to be at baseline. Closely monitor with IV Lasix. Nephrology followed (4) Diabetes mellitus Current Visit: No Status: Chronic Assessment and Plan: per hx. Holding home oral hypoglycemics. SSI. (5) CAD (coronary artery disease) Current Visit: No Status: Chronic Assessment and Plan: per hx. asymptomatic, denied chest pain. Cont home ASA, nitrate, statin, BB (6) HTN (hypertension) Current Visit: No Status: Chronic Assessment and Plan: per hx. BP controlled. Cont home BP medications. Monitor BP and titrate PRN (7) DVT prophylaxis Current Visit: Yes Status: Acute Assessment and Plan: Heparin - Time Spent with Patient Total time spent is greater than 50% in coordination of care (as documented) at patient's floor/unit and/or counseling patient: Internal Medicine: Result - Labs CBC & Chem 7: 06/17/18 04:50 06/17/18 04:50 Labs: Short CBC 06/16/18 06/17/18 Range/Units 15:41 04:50 WBC 5.4 4.1 L (4.3-11.1) K/mcL Hgb 10.9 L 10.7 L (12.9-16.9) g/dL Hct 34.6 L 33.9 L (37.5-50.1) % Plt Count 231 224 (140-400) K/mcL Neutrophils # 3.5 3.6 (1.6-8.9) K/mcL BMP 06/16/18 06/17/18 15:41 04:50 Sodium 140 137 Potassium 4.4 4.4 Chloride 100 99 Carbon Dioxide 28 28 BUN 38 H 39 H Creatinine 2.67 H 2.83 H Glucose 174 H 242 H Calcium 9.2 9.4 Cardiac Enzymes 06/16/18 Range/Units 15:41 Troponin I < 0.03 (< 0.04) ng/mL - Impressions Impressions Chest X-Ray 06/16/18 15:20 IMPRESSION: 1. Findings are most suggestive of pulmonary interstitial edema with trace bilateral pleural effusions. Correlation with volume status is recommended. 2. Persistently enlarged cardiomediastinal silhouette. D/ / Wagner Perla MD / Wagner Perla MD Interpreting Provider: Wagner Perla MD Consult Discharge Plan - Plan Referrals: Dago London DO [Primary Care Provider] - (1) CHF (congestive heart failure) Qualifiers: Heart failure type: diastolic Heart failure chronicity: acute on chronic Qualified Code(s): I50.33 - Acute on chronic diastolic (congestive) heart failure (2) COPD (chronic obstructive pulmonary disease) Qualifiers: COPD type: unspecified COPD Qualified Code(s): J44.9 - Chronic obstructive pulmonary disease, unspecified (4) Diabetes mellitus Qualifiers: Diabetes mellitus type: type 2 Diabetes mellitus fpc insulin use: without fpc use Diabetes mellitus complication status: with kidney complications Diabetes mellitus complication detail: with chronic kidney disease Chronic kidney disease stage: stage 4 (severe) Qualified Code(s): E 11.22 - Type 2 diabetes mellitus with diabetic chronic kidney disease; N18.4 - Chronic kidney disease, stage 4 (severe) (5) CAD (coronary artery disease) Qualifiers: Coronary Disease-Associated Artery/Lesion type: [place] artery [place] vs. transplanted heart: [place] heart Associated angina: without angina Qualified Code(s): I25.10 - Atherosclerotic heart disease of [place] coronary artery w ithout angina pectoris (6) HTN (hypertension) Qualifiers: Hypertension type: essential hypertension Qualified Code(s): I10 - Essential (primary) hypertension
[2018-06-17 13:47] LABS: Adenovirus Not Detected (Not Detect); Bordetella Pertussis Not Detected (Not Detect); Chlamydophila pneumoniae Not Detected (Not Detect); Coronavirus 229E Not Detected (Not Detect); Coronavirus HKU1 Not Detected (Not Detect); Coronavirus NL63 Not Detected (Not Detect); Coronavirus OC43 Not Detected (Not Detect); Human Metapneumovirus Not Detected (Not Detect); Human Rhinovirus/Enterovirus Not Detected (Not Detect); Influenza A Subtype 2009 H1 Not Detected (Not Detect); Influenza A Untypeable Not Detected (Not Detect); Influenza B Not Detected (Not Detect); Mycoplasma pneumoniae Not Detected (Not Detect); Parainfluenza Virus 1 Not Detected (Not Detect); Parainfluenza Virus 2 Not Detected (Not Detect); Parainfluenza Virus 3 Not Detected (Not Detect); Parainfluenza Virus 4 Not Detected (Not Detect); Respiratory Syncytial Virus Not Detected (Not Detect)
[2018-06-17] MEDS: cefTRIAXone 1,000 MG in Water for inj. (sterile) 20 ML 10 ML IVP SCH (17:38)
[2018-06-17] MEDS: Chloraseptic Spray 177 ML BOTTLE MM PRN (17:39)
[2018-06-17] MEDS: Azithromycin 250 MG in D5% in Water 250 ML IVPB SCH (17:39)
[2018-06-18] MEDS: Ipratropium/Albuterol Neb 3 ML IH SCH ×6 (00:05→20:01)
[2018-06-18 04:52] LABS: Hematocrit 31.7 % (37.5-50.1); Hemoglobin 9.9 g/dL (12.9-16.9); Mean Corpuscular HGB Conc 31.2 g/dL (31.6-35.5); Mean Corpuscular Hemoglobin 29.8 pg (28.0-33.3); Mean Corpuscular Volume 95.5 fL (83.0-100.0); Mean Platelet Volume 10.2 fL (9.4-12.4); Platelet Count 231 K/mcL (140-400); Red Blood Count 3.32 M/mcL (4.19-5.50); Red Cell Distribution Width 14.3 % (11.5-14.5)
[2018-06-18 05:10] LABS: Calcium 8.8 mg/dL (8.6-10.3); Potassium 4.4 mEq/L (3.5-5.1)
[2018-06-18] MEDS: *HR* Heparin 5,000 UNIT/ML VIAL SQ SCH ×2 (06:22→17:29)
[2018-06-18] MEDS: Chloraseptic Spray 177 ML BOTTLE MM PRN ×4 (06:24→20:22)
[2018-06-18] MEDS: Budesonide/Formoterol 80/4.5 MDI IH SCH ×2 (07:25→20:01)
[2018-06-18] MEDS: Insulin LISPRO 300 UNITS/3 ML VIAL SQ SCH ×4 (07:52→21:50)
[2018-06-18] MEDS: amLODIPine 5 MG TABLET PO SCH (07:55)
[2018-06-18] MEDS: Metoprolol XL (24 HR) Succ 50 MG TAB.ER.24H PO SCH (07:55)
[2018-06-18] MEDS: Isosorbide MONOnitrate (24 HR) 30 MG TAB.ER.24H PO SCH (07:55)
[2018-06-18] MEDS: Cholecalciferol (D-3) 1,000 UNIT TABLET PO SCH (07:55)
[2018-06-18] MEDS: Aspirin 81 MG TAB.CHEW PO SCH (07:55)
[2018-06-18] MEDS: Furosemide 40 MG/4 ML VIAL IVP SCH (08:06)
[2018-06-18] MEDS ORDERED: predniSONE 20 MG TABLET PO SCH (09:00)
--- NOTE | 2018-06-18 10:31 | Internal Med Progress Note ---
Hospitalist Progress Note - Encounter Date of Encounter: 06/18/18 Time of Encounter: 10:27 - Subjective Interval History: Patient seen and evaluated at bedside. Reports that he is still feeling short of breath and continues to cough. also reports that last night he was having visual and auditory hallucinations. denies chest pain, and reports that the swelling in his lower extremities has improved. - Exam Vitals: Temp Pulse Resp BP Pulse Ox 98.2 F 88 16 142/65 98 06/18/18 07:08 06/18/18 07:08 06/18/18 07:25 06/18/18 07:08 06/18/18 07:25 Exam: General: Alert and oriented x4. In mild distress due to cough and shortness of breath. Skin: Normal color, no rash, no lesions. HEENT: EOM, pupils equal, round and reactive. Cardiovascular: RRR, Normal S1 & S2, no rubs, murmurs or gallops. Lungs: Bilateral crackles at both bases L>R, no wheezing. Abdomen: Obese, Soft, non-tender, no rigidity. Extremities: trace pitting edema in the lower extr b/l. Neurological:Normal cognition and motor skills. Rest of the physical exam is non contributory - Assessment and Plan (1) CHF (congestive heart failure) Current Visit: Yes Status: Acute Assessment and Plan: TTE: Impressions: Technically sub-optimal due to poor echocardiographic windows. LVEF 55-60%. Normal left ventricular diastolic function. Normal LV chamber size, wall thickness and function. Normal right ventricular structure and function. Aneurysmal interatrial septal. Mildly calcified aortic valve leaflets. Unable to estimate RVSP due to lack of TR jet. Plan continue strict intake and output fluids restriction to 1.5 litters a day, patient has a positive balance of 900ml furosemide decreased to 40mg/IV daily due to worsening kidney function continue low dose bb Losartan discontinued due to worsening BLANCA/CKD On isosorbide 30mg/PO daily (2) COPD (chronic obstructive pulmonary disease) Current Visit: Yes Status: Acute Assessment and Plan: crackles at the bases b/l. no wheezing heard Plan continue Duo-Nebs Q4RT scheduled d/c prednisone as patient is reporting visual and auditory hallucinations if patient continues to report hallucination, consider head CT. O2 by nasal cannula, titrate for O2Sat >92% incentive spirometry continue azithromycin 500mg/IV daily DC Ceftriaxone, no infiltrate or consolidation seen on Chest CT. On symbicort (3) CKD (chronic kidney disease) stage 4, GFR 15-29 ml/min Current Visit: No Status: Chronic Assessment and Plan: Worsening kidney function Plan furosemide has been decreased to 40mg/IV daily DC losartan Nephrology consulted will follow recommendations. avoid nephrotoxic medications (4) Diabetes mellitus Current Visit: No Status: Chronic Assessment and Plan: Blood sugar sub-optimally controlled Plan Will add levemir 5 units BID continue Lispro low dose sliding scale AC Carb controlled diet (5) CAD (coronary artery disease) Current Visit: No Status: Chronic Assessment and Plan: On aspirin 81 mg by mouth daily. (6) HTN (hypertension) Current Visit: No Status: Chronic Assessment and Plan: Blood pressure is well controlled. Continue amlodipine 10 mg by mouth daily. On metoprolol 100mg/PO daily, and isosorbide 30mg/PO daily. DVT Prophylaxis: On heparin subcutaneous. - Summary of Assessment and Plan Summary of Assessment and Plan: Patient to remain in the hospital due to acute HFpEF and COPD exacerbation - Time Spent with Patient Total time spent is greater than 50% in coordination of care (as documented) at patient's floor/unit and/or counseling patient: Greater than 35 minutes (38) Plan of Care Discussed with: patient (his and the nurse.) Internal Medicine: Result - Labs CBC & Chem 7: 06/18/18 04:24 06/18/18 04:24 Labs: Short CBC 06/18/18 Range/Units 04:24 WBC 10.8 D (4.3-11.1) K/mcL Hgb 9.9 L (12.9-16.9) g/dL Hct 31.7 L (37.5-50.1) % Plt Count 231 (140-400) K/mcL BMP 06/18/18 04:24 Sodium 136 Potassium 4.4 Chloride 96 L Carbon Dioxide 29 BUN 54 H Creatinine 3.20 H Glucose 218 H Calcium 8.8 - Impressions Impressions Echocardiogram 06/17/18 07:00 Impressions: Technically sub-optimal due to poor echocardiographic windows. LVEF 55-60%. Normal left ventricular diastolic function. Normal LV chamber size, wall thickness and function. Normal right ventricular structure and function. Aneurysmal interatrial septal. Mildly calcified aortic valve leaflets. Unable to estimate RVSP due to lack of TR jet. Left Ventricular Wall Motion: Rest Echo Findings All wall segments showed normal motion. Findings: Study Quality * Technically sub-optimal due to poor echocardiographic windows. ECG Findings * Normal sinus rhythm. Left Ventricle * LVEF 55-60%. * Normal left ventricular diastolic function. * Normal LV chamber size, wall thickness and function. Right Ventricle * Normal right ventricular structure and function. Left Atrium * Normal left atrial size. Right Atrium * Normal right atrial size. Interatrial Septum * Aneurysmal interatrial septal. Aortic Valve * Trileaflet aortic valve. * Mildly calcified aortic valve leaflets. * No aortic regurgitation. * No aortic stenosis. Mitral Valve * Normal mitral valve structure. * No mitral regurgitation. * No mitral stenosis. Tricuspid Valve * Normal tricuspid valve structure. * Unable to estimate RVSP due to lack of TR jet. * No tricuspid regurgitation. * No tricuspid stenosis. Pulmonic Valve * Normal pulmonic valve structure. * No pulmonic regurgitation. * No pulmonic stenosis. Aorta * Normally sized aortic root. IVC * Normal IVC dimensions and inspiratory collapse. Pulmonary Artery * Normal visualized portions of the main pulmonary artery. Pericardium * There is a trivial pericardial effusion present. Chest CT 06/17/18 12:45 IMPRESSION: 1. Interval progression of interstitial lung disease, probable UIP CT pattern. 2. No definite acute superimposed process is evident. 3. Main pulmonary artery enlargement can be seen with pulmonary hypertension but is nonspecific. 4. Calcific atherosclerosis aorta and coronary arteries status post CABG. 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 transplanted heart: [place] heart Associated angina: without angina Qualified Code(s): I25.10 - Atherosclerotic heart disease of [place] coronary artery without angina pectoris (6) HTN (hypertension) Qualifiers: Hypertension type: essential hypertension Qualified Code(s): I10 - Essential (primary) hypertension
[2018-06-18] MEDS: MethylPREDNISolone 40 MG/ML VIAL IVP SCH (11:45)
--- NOTE | 2018-06-18 15:01 | Electrocardiograph Report ---
[place] [id number] Test Date: 2018-06-16 Pat Name: Aaron Hunter Department: EXAM19 Room: 2NE20 Gender: M [employer]room Sp[employer] Maker: : [id number] Requested By: Mega Read Order Number: [id number] Reading MD: Angelica Mckay Measurements Intervals [place] Rate: 73 P: 10 IA: 200 QRS: -3 QRSD: 106 T: 99 QT: 403 QTc: 445 Interpretive Statements Sinus rhythm Inferior infarct, old Nonspecific ST and T abnormalities Electronically Signed On 06-18-2018 14:59:23 EST by Angelica Mckay
[2018-06-18] MEDS: Azithromycin 250 MG in D5% in Water 250 ML IVPB SCH (17:30)
--- NOTE | 2018-06-18 17:36 | Nephrology Progress Note ---
Date of Encounter: 06/18/18 Time of Encounter: 12:00 - Assessment and Plan (1) CKD (chronic kidney disease) stage 4, GFR 15-29 ml/min Current Visit: No Status: Chronic SCr noted at 3.2, GFR 19 still within range of fluctuation, will monitor UOP noted at 500cc in the past 24hrs which is not very impressive Continue to avoid nephrotoxins if possible Pt wants followup with Dr Bedoya on discharge instead of previous visiting housekeeper (2) CHF (congestive heart failure) Current Visit: Yes Status: Acute Continue current diuretic regimen Strict I/Os advised Continue fluid restriction Qualifiers: Heart failure type: diastolic Heart failure chronicity: acute on chronic Qualified Code(s): I50.33 - Acute on chronic diastolic (congestive) heart failure (3) Anemia Current Visit: Yes Status: Acute Hgb noted at 9.9, will monitor Qualifiers: Anemia type: due to chronic kidney disease Chronic kidney disease stage: stage 4 (severe) Qualified Code(s): N18.4 - Chronic kidney disease, stage 4 (severe); D63.1 - Anemia in chronic kidney disease Subjective Interval history: Interim events noted, pt seen and examined with family at bedside. Pt reports feeling alittle better but still with SOB. Objective - Vital Signs Vital signs: Vital Signs Temp Pulse Resp BP Pulse Ox 06/18/18 16:00 98.0 F 87 19 132/71 99 06/18/18 15:19 16 96 06/18/18 11:50 98.1 F 86 19 153/68 98 06/18/18 11:29 16 97 06/18/18 07:25 16 98 06/18/18 07:08 98.2 F 88 19 142/65 06/18/18 05:02 98.4 F 86 15 129/62 92 06/18/18 03:37 16 94 06/18/18 00:05 16 128/63 98 06/17/18 21:43 97 06/17/18 19:59 16 94 06/17/18 19:00 98.3 F 89 15 128/63 97 Intake and Output 06/18/18 06/18/18 06/18/18 07:59 15:59 23:59 Intake Total 250 / 250 730 / 730 Output Total 250 / 250 Balance 0 / 0 730 / 730 Intake: IV Fluids 250 / 250 10 10 Rocephin 1,000 MG In Water for inj. (sterile) 10 ML @ 300 mls/ hr IVP Q24H [facility] Rx#:[id number] Zithromax 250 mg In Dextrose 5% 250 / 250 250 ML @ 252 mls/hr IVPB Q24H [facility] Rx#:[id number] Oral 0 / 0 720 / 720 Output: Urine 250 / 250 Other: Meal Lunch Percent of Meal Consumed 100% Weight 116.2 kg Blood Glucose* 229 143 240 Patient Weight 06/18/18 23:59 Weight 116.2 kg - General Appearance General appearance: Present: chronically ill EENT: Present: ATNC, mucous membranes moist Neck: Present: no JVD, supple Additional Comments: good areation with slightly decreased BS bases bilat Cardiology: Present: edema (trace LE bilat), normal S1, normal S2 Gastrointestinal: Present: no tenderness, no guarding, distended (soft) Integumentary: Present: warm and dry Neurologic: Present: no focal deficit Musculoskeletal: Present: no deformities Psychiatric: Present: mood/affect appropriate, cooperative - Lab 06/19/18 03:34 06/19/18 03:34 Most recent lab results Calcium 8.8 mg/dL (8.6-10.3) 06/18/18 04:24 Magnesium 1.9 mg/dL (1.6-2.6) 06/17/18 04:50 Consult Discharge Plan - Plan Referrals: Dago London DO [Primary Care Provider] -
[2018-06-18] MEDS: GuaiFENesin/Pseudophedrine TABLET PO SCH (20:22)
[2018-06-18] MEDS: Insulin DETEMIR 100 UNIT/ML X5UNITS SQ SCH (21:49)
[2018-06-19] MEDS: Ipratropium/Albuterol Neb 3 ML IH SCH ×6 (02:06→19:50)
[2018-06-19 04:04] LABS: Hematocrit 30.7 % (37.5-50.1); Hemoglobin 9.6 g/dL (12.9-16.9); Mean Corpuscular HGB Conc 31.3 g/dL (31.6-35.5); Mean Corpuscular Hemoglobin 29.8 pg (28.0-33.3); Mean Corpuscular Volume 95.3 fL (83.0-100.0); Mean Platelet Volume 10.5 fL (9.4-12.4); Platelet Count 225 K/mcL (140-400); Red Blood Count 3.22 M/mcL (4.19-5.50); Red Cell Distribution Width 14.5 % (11.5-14.5)
[2018-06-19 04:26] LABS: Calcium 8.8 mg/dL (8.6-10.3); Potassium 4.9 mEq/L (3.5-5.1)
[2018-06-19] MEDS: *HR* Heparin 5,000 UNIT/ML VIAL SQ SCH ×2 (06:31→18:21)
[2018-06-19] MEDS: Budesonide/Formoterol 80/4.5 MDI IH SCH ×2 (07:40→19:51)
[2018-06-19] MEDS: Metoprolol XL (24 HR) Succ 50 MG TAB.ER.24H PO SCH (08:52)
[2018-06-19] MEDS: amLODIPine 5 MG TABLET PO SCH (08:52)
[2018-06-19] MEDS: Aspirin 81 MG TAB.CHEW PO SCH (08:52)
[2018-06-19] MEDS: Furosemide 40 MG/4 ML VIAL IVP SCH (08:53)
[2018-06-19] MEDS: Isosorbide MONOnitrate (24 HR) 30 MG TAB.ER.24H PO SCH (08:53)
[2018-06-19] MEDS: Cholecalciferol (D-3) 1,000 UNIT TABLET PO SCH (08:53)
[2018-06-19] MEDS: GuaiFENesin/Pseudophedrine TABLET PO SCH ×2 (08:53→21:08)
[2018-06-19] MEDS: MethylPREDNISolone 40 MG/ML VIAL IVP SCH (08:53)
[2018-06-19] MEDS: Insulin LISPRO 300 UNITS/3 ML VIAL SQ SCH ×4 (09:09→21:09)
[2018-06-19] MEDS: Insulin DETEMIR 100 UNIT/ML X5UNITS SQ SCH ×2 (09:11→21:08)
--- NOTE | 2018-06-19 13:02 | Nephrology Progress Note ---
Date of Encounter: 06/19/18 Time of Encounter: 11:00 - Assessment and Plan (1) BLANCA (acute kidney injury) Current Visit: Yes Status: Acute Worsening SCr due to decreased po fluid intake and diuretics Agree with decreased lasix dose, will add albumin Continue to avoid nephrotoxins if possible Bladder scan today and place [facility] if needed Encouraged po fluids but no more than 48oz a day (2) CKD (chronic kidney disease) stage 4, GFR 15-29 ml/min Current Visit: No Status: Chronic SCr noted at 3.2, GFR 19 still within range of fluctuation, will monitor UOP noted at 250cc in the past 24hrs which is not very impressive Continue to avoid nephrotoxins if possible Pt wants followup with Dr 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 (3) Anemia Current Visit: Yes Status: Acute Hgb noted at 9.6, will monitor Qualifiers: Anemia type: due to chronic kidney disease Chronic kidney disease stage: stage 4 (severe) Qualified Code(s): N18.4 - Chronic kidney disease, stage 4 (severe); D63.1 - Anemia in chronic kidney disease (4) Acute CHF Current Visit: Yes Status: Acute Continue diuresis Discussed pulm consult with primary team, will defer to them Continue lasix/albumin for today and reassess in the am Qualifiers: Heart failure type: systolic Qualified Code(s): I50.21 - Acute systolic (congestive) heart failure Subjective Interval history: Pt seen and examined with family at bedside concerned about continued SOB, increasing abdominal girth, decreased po fluid intake and worsening renal fxn. Objective - Vital Signs Vital signs: Vital Signs Temp Pulse Resp BP Pulse Ox 06/19/18 11:16 16 98 06/19/18 10:44 97.6 F 93 18 143/67 98 06/19/18 07:40 18 99 06/19/18 07:23 97.8 F 85 18 132/70 99 06/19/18 05:26 97.6 F 86 15 144/66 95 06/19/18 03:36 16 97 06/19/18 00:18 16 94 06/18/18 20:35 99 06/18/18 20:02 16 97 06/18/18 16:00 98.0 F 87 19 132/71 99 06/18/18 15:19 16 96 Intake and Output 06/18/18 06/19/1806/19/18 23:59 07:59 15:59 Intake Total 500 / 500 360 / 360 Output Total 450 / 450 Balance 50 / 50 360 / 360 Intake: Oral 500 / 500 360 / 360 Output: Urine 450 / 450 Other: Meal Dinner Lunch Percent of Meal Consumed 100% 100% Weight 117.5 kg Blood Glucose* 240 236 278 Patient Weight 06/19/18 23:59 Weight 117.5 kg - General Appearance General appearance: Present: chronically ill EENT: Present: ATNC, mucous membranes moist Neck: Present: no JVD, supple Additional Comments: decreased BS bases bilat Cardiology: Present: edema (trace LE edema bilat), normal S1, normal S2 Gastrointestinal: Present: no tenderness, no guarding, distended Integumentary: Present: warm and dry Neurologic: Present: no focal deficit Musculoskeletal: Present: no deformities Psychiatric: Present: mood/affect appropriate - Lab 06/19/18 03:34 06/19/18 03:34 Most recent lab results Calcium 8.8 mg/dL (8.6-10.3) 06/19/18 03:34 Magnesium 1.9 mg/dL (1.6-2.6) 06/17/18 04:50 Consult Discharge Plan - Plan Referrals: Dago London DO [Primary Care Provider] -
[2018-06-19] MEDS: Albumin 25% 25gram/100mL 25 GM/100 ML IV.SOLN IVPB SCH (15:08)
[2018-06-19] MEDS ORDERED: Azithromycin 250 MG TABLET PO SCH (18:00)
--- NOTE | 2018-06-19 18:53 | Internal Med Progress Note ---
Hospitalist Progress Note - Encounter Date of Encounter: 06/19/18 Time of Encounter: 11:00 - Subjective Interval History: Patient presented with shortness of breath found to have COPD exacerbation with acute on chronic systolic heart failure in addition to acute on chronic CKD 3 Patient this morning at baseline O2 supplementation but without much improvement in acute on chronic renal failure; nephrology following - Exam Vitals: Temp Pulse Resp BP Pulse Ox 97.4 F L 100 17 134/60 94 06/19/18 15:34 06/19/18 15:34 06/19/18 16:27 06/19/18 15:34 06/19/18 16:27 Exam: Gen.: Nonacute distress, alert and oriented 3 ENT: Mucosal membranes moist Respiratory: Lungs are clear to auscultation bilaterally without any wheezing rhonchi or rales Cardiovascular: Normal S1 and S2 regular rate rhythm no murmurs rubs or gallops Abdomen: Soft, but distended with positive bowel sounds Extremities: No lower extremity edema Skin: Normal color - Assessment and Plan (1) COPD (chronic obstructive pulmonary disease) Current Visit: Yes Status: Acute Assessment and Plan: Patient's lung exam this morning improved without noticeable wheezes Patient on baseline O2 requirements Descalated IV Solu-Medrol to oral prednisone and continue dual nebs with IV azithromycin (2) Acute on chronic systolic (congestive) heart failure Current Visit: Yes Status: Acute Assessment and Plan: Patient with BNP of 361 on admission Echocardiogram showed LVEF of 55-60% Will continue IV diuresis with Lasix 40 mg daily Cardiology consulted and appreciate recommendations (3) CKD (chronic kidney disease) stage 4, GFR 15-29 ml/min Current Visit: No Status: Chronic Assessment and Plan: Worsening kidney function Avoiding nephrotoxic medications Nephrology consulted and appreciate recommendations. (4) Diabetes mellitus Current Visit: No Status: Chronic Assessment and Plan: Continue low dose basal insulin with sliding scale coverage (5) CAD (coronary artery disease) Current Visit: No Status: Chronic Assessment and Plan: On aspirin 81 mg by mouth daily. (6) HTN (hypertension) Current Visit: No Status: Chronic Assessment and Plan: Controlled; continue amlodipine, metoprolol and isosorbide DVT Prophylaxis: Subcutaneous heparin - Time Spent with Patient Total time spent is greater than 50% in coordination of care (as documented) at patient's floor/unit and/or counseling patient: Internal Medicine: Result - Labs CBC & Chem 7: 06/20/18 03:05 06/20/18 03:05 Labs: Short CBC 06/19/18 Range/Units 03:34 WBC 11.3 H (4.3-11.1) K/mcL Hgb 9.6 L (12.9-16.9) g/dL Hct 30.7 L (37.5-50.1) % Plt Count 225 (140-400) K/mcL BMP 06/19/18 03:34 Sodium 134 L Potassium 4.9 Chloride 97 L Carbon Dioxide 25 BUN 76 H Creatinine 3.85 H Glucose 201 H Calcium 8.8 Consult Discharge Plan - Plan Referrals: Dago London DO [Primary Care Provider] - (1) COPD (chronic obstructive pulmonary disease) Qualifiers: COPD type: unspecified COPD Qualified Code(s): J44.9 - Chronic obstructive pulmonary disease, unspecified (4) Diabetes mellitus Qualifiers: Diabetes mellitus type: type 2 Diabetes mellitus senior care insulin use: without watermelon inspector use Diabetes mellitus complication status: with kidney complications Diabetes mellitus complication detail: with chronic kidney disease Chronic kidney disease stage: stage 4 (severe) Qualified Code(s): E11.22 - Type 2 diabetes mellitus with diabetic chronic kidney disease; N18.4 - Chronic kidney disease, stage 4 (severe) (5) CAD (coronary artery disease) Qualifiers: Coronary Disease-Associated Artery/Lesion type: [place] artery [place] vs. transplanted heart: [place] heart Associated angina: without angina Qualified Code(s): I25.10 - Atherosclerotic heart disease of [place] coronary artery without angina pectoris (6) HTN (hypertension) Qualifiers: Hypertension type: essential hypertension Qualified Code(s): I10 - Essential (primary) hypertension
[2018-06-19] MEDS: Chloraseptic Spray 177 ML BOTTLE MM PRN (21:07)
[2018-06-20] MEDS: Ipratropium/Albuterol Neb 3 ML IH SCH ×7 (00:18→23:38)
[2018-06-20 03:26] LABS: Hematocrit 29.1 % (37.5-50.1); Hemoglobin 9.4 g/dL (12.9-16.9); Mean Corpuscular HGB Conc 32.3 g/dL (31.6-35.5); Mean Corpuscular Hemoglobin 30.3 pg (28.0-33.3); Mean Corpuscular Volume 93.9 fL (83.0-100.0); Mean Platelet Volume 10.6 fL (9.4-12.4); Platelet Count 212 K/mcL (140-400); Red Cell Distribution Width 14.5 % (11.5-14.5)
[2018-06-20 03:46] LABS: Calcium 8.8 mg/dL (8.6-10.3)
[2018-06-20] MEDS: *HR* Heparin 5,000 UNIT/ML VIAL SQ SCH ×2 (06:05→16:57)
[2018-06-20] MEDS: Chloraseptic Spray 177 ML BOTTLE MM PRN (06:14)
[2018-06-20] MEDS: Budesonide/Formoterol 80/4.5 MDI IH SCH ×2 (07:40→19:48)
[2018-06-20] MEDS: amLODIPine 5 MG TABLET PO SCH (08:09)
[2018-06-20] MEDS: predniSONE 20 MG TABLET PO SCH (08:09)
[2018-06-20] MEDS: Metoprolol XL (24 HR) Succ 50 MG TAB.ER.24H PO SCH (08:10)
[2018-06-20] MEDS: GuaiFENesin/Pseudophedrine TABLET PO SCH ×2 (08:10→20:57)
[2018-06-20] MEDS: Albumin 25% 25gram/100mL 25 GM/100 ML IV.SOLN IVPB SCH (08:10)
[2018-06-20] MEDS: Cholecalciferol (D-3) 1,000 UNIT TABLET PO SCH (08:10)
[2018-06-20] MEDS: Isosorbide MONOnitrate (24 HR) 30 MG TAB.ER.24H PO SCH (08:10)
[2018-06-20] MEDS: Aspirin 81 MG TAB.CHEW PO SCH (08:10)
[2018-06-20] MEDS: Insulin DETEMIR 100 UNIT/ML X5UNITS SQ SCH ×2 (08:16→20:57)
[2018-06-20] MEDS: Insulin LISPRO 300 UNITS/3 ML VIAL SQ SCH ×4 (08:17→20:58)
--- NOTE | 2018-06-20 09:23 | Internal Med Progress Note ---
Hospitalist Progress Note - Encounter Date of Encounter: 06/20/18 Time of Encounter: 11:00 - Subjective Interval History: Patient presented with shortness of breath found to have COPD exacerbation with acute on chronic systolic heart failure in addition to acute on chronic CKD 3 Patient this morning at baseline O2 supplementation but without much improvement in acute on chronic renal failure; nephrology following - Exam Vitals: Temp Pulse Resp BP Pulse Ox 97.9 F 87 18 135/66 97 06/20/18 07:00 06/20/18 07:00 06/20/18 07:40 06/20/18 07:00 06/20/18 07:40 Exam: Gen.: Nonacute distress, alert and oriented 3 ENT: Mucosal membranes moist Respiratory: Lungs are clear to auscultation bilaterally without any wheezing rhonchi or rales Cardiovascular: Normal S1 and S2 regular rate rhythm no murmurs rubs or gallops Abdomen: Soft, but distended with positive bowel sounds Extremities: No lower extremity edema Skin: Normal color - Assessment and Plan (1) COPD (chronic obstructive pulmonary disease) Current Visit: Yes Status: Acute Assessment and Plan: Patient's lung exam this morning improved without noticeable wheezes Patient on baseline O2 requirements Continue oral prednisone and continue dual nebs with IV azithromycin (2) ILD (interstitial lung disease) Current Visit: Yes Status: Acute Assessment and Plan: CT of the chest showed interval progression of interstitial lung disease, without any definite acute superimposed process. Patient requiring baseline supplemental oxygen (3) Acute on chronic systolic (congestive) heart failure Current Visit: Yes Status: Acute Assessment and Plan: Patient with BNP of 361 on admission Echocardiogram showed LVEF of 55-60% Will continue IV diuresis with Lasix 40 mg daily Cardiology consulted and appreciate recommendations (4) CKD (chronic kidney disease) stage 4, GFR 15-29 ml/min Current Visit: No Status: Chronic Assessment and Plan: Patient's creatinine without much improvement this morning at 3.43 from 3.85 yesterday Avoiding nephrotoxic medications Nephrology consulted and appreciate recommendations. (5) Diabetes mellitus Current Visit: No Status: Chronic Assessment and Plan: Continue low dose basal insulin with sliding scale coverage (6) CAD (coronary artery disease) Current Visit: No Status: Chronic Assessment and Plan: On aspirin 81 mg by mouth daily. (7) HTN (hypertension) Current Visit: No Status: Chronic Assessment and Plan: Controlled; continue amlodipine, metoprolol and isosorbide DVT Prophylaxis: Heparin subcutaneous - Time Spent with Patient Total time spent is greater than 50% in coordination of care (as documented) at patient's floor/unit and/or counseling patient: Internal Medicine: Result - Labs CBC & Chem 7: 06/20/18 03:05 06/20/18 03:05 Labs: Short CBC 06/20/18 Range/Units 03:05 WBC 10.4 (4.3-11.1) K/mcL Hgb 9.4 L (12.9-16.9) g/dL Hct 29.1 L (37.5-50.1) % Plt Count 212 (140-400) K/mcL BMP 06/20/18 03:05 Sodium 135 L Potassium 5.0 Chloride 98 Carbon Dioxide 29 BUN 83 H Creatinine 3.43 H Glucose 251 H Calcium 8.8 - Impressions Impressions Abdomen Ultrasound 06/19/18 15:53 IMPRESSION: No evidence of ascites. Bilateral renal cysts measuring up to 3.5 cm. D/ / Chris Multani MD / Chris Multani MD Interpreting Provider: Chris Multani MD Consult Discharge Plan - Plan Referrals: Dago London DO [Primary Care Provider] - (1) COPD (chronic obstructive pulmonary disease) Qualifiers: COPD type: unspecified COPD Qualified Code(s): J44.9 - Chronic obstructive pulmonary disease, unspecified (5) Diabetes mellitus Qualifiers: Diabetes mellitus type: type 2 Diabetes mellitus mcfp insulin use: without mcfp use Diabetes mellitus complication status: with kidney complications Diabetes mellitus complication detail: with chronic kidney disease Chronic kidney disease stage: stage 4 (severe) Qualified Code(s): E11.22 - Type 2 diabetes mellitus with diabetic chronic kidney disease; N18.4 - Chronic kidney disease, stage 4 (severe) (6) CAD (coronary artery disease) Qualifiers: Coronary Disease-Associated Artery/Lesion type: [place] artery [place] vs. transplanted heart: [place] heart Associated angina: without angina Qualified Code(s): I25.10 - Atherosclerotic heart disease of [place] coronary artery without angina pectoris (7) HTN (hypertension) Qualifiers: Hypertension type: essential hypertension Qualified Code(s): I10 - Essential (primary) hypertension
--- NOTE | 2018-06-20 09:56 | Cardiology Consult Note ---
Addendum entered and electronically signed by Panda Burleson DO 06/20/18 13:20: I have personally performed a face to face evaluation on this patient. I have reviewed and agree with the care plan. History and Exam by me shows: Diastolic heart failure, much improved per patient. States his cholesterol status is back to baseline. He admits to excessive sodium consumption at home. Does not restrict fluid intake. Agree with cautious diuresis. Risk factor modification, CHF education discussed. No further inpatient cardiology recommendations. Agree with assessment and plan as described below. Thanks, Panda Burleson DO, [facility] Original Note: Date of Encounter: 06/20/18 Time of Encounter: 09:00 Assessment and Plan (1) CHF (congestive heart failure) Current Visit: Yes Status: Acute Per cardiology: -Diastolic CHF. -Per notes, was significantly volume overloaded on exam. Patient reported shortness of breath, cough, increased edema at home ongoing for 2 weeks. -BNP 361. -INitial chest x-ray with pulmonary edema and trace bilateral pleural effusions. Was give IV lasix in ER. Has chest CT the following day with interval progression of interstitial lung disease, however no acute process. -BLANCA on CKD. -TTE this admission with LVEF 55-60%, normal diastolic function, aneurysmal interatrial septum, mildly calcified AV leaflets, no wall motion abnormalities. Previous TTE 2014 with mild diastolic dysfunction. -ON IV lasix daily, near euvelmic on exam today. Reports symptoms have improved with diuresis. -Patient is now near euvolemic, nephrology following. -CHF education reinforced with patient and family at length. -Anticipate cardiology sign off pending evaluation per . Qualifiers: Heart failure type: diastolic Heart failure chronicity: acute on chronic Qualified Code(s): I50.33 - Acute on chronic diastolic (congestive) heart failure (2) BLANCA (acute kidney injury) Current Visit: Yes Status: Acute Per cardiology: -BLANCA on CKD noted. -Nephrology following, -Management per primary and nephrology services. 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 -On asa, statin (simvastatin in outpatient setting), BB, imdur. -TTE as above, with LVEF preserved, no wall motion abnormalities noted. -STress 2013 positive for infarct, however negative for ischemia. Qualifiers: Coronary Disease-Associated Artery/Lesion type: [place] artery [place] vs. transplanted heart: [place] heart Associated angina: without angina Qualified Code(s): I25.10 - Atherosclerotic heart disease of [place] coronary artery without angina pectoris Discussion w patient/family: The assessment and plan as outlined above was discussed with the patient and/or family members who expressed understanding and agreement. All questions were answered. Thank you for involving us in the care of your patient. Please call with any questions. Discussed and reviewed with . History of Present Illness Consult date: 06/19/18 Requesting physician: Hua Harper Consult reason: CHF Chief complaint: shortness of breath, edema History of present illness: Mr. Hunter is a 87 year old male with a relevant past medical history of CAD s/p CABG and re-do CABG, HTN, DM, HLD, gout, pulmonary fibrosis, CKD, RODOLFO, COPD who presented to [facility] with complaints of increased shortness of breath and cough for the past 2 weeks. Patient states cough is dry, non-productive. Patient also rep orts worsening peripheral edema. Patient is unsure about weight gain, states he does not weigh himself very frequently. Denies chest pain. Patient denies fever, chills. Denies orthopnea. Patient states today symptoms are much improved. Past Med Surg Social Fam HX - Past Medical History Attestation: Yes The following information was validated with the patient. Source: patient, old records reviewed Medical history: COPD, coronary artery disease, diabetes, hyperlipidemia, hypertension, myocardial infarction, renal disease Psychiatric history: no psych history - Past Surgical History Surgical History: cholecystectomy Additional surgical history: CABG X2, bilateral knee replacement, cardiac stent - Social History Smoking Status: Never smoker Smokeless Tobacco Status: No Alcohol use: none Drug use: none - Family History Mother Hx Family Cardiac Disorders: Yes Medications and Allergies Albuterol Sulfate [Proair Hfa] 2 puff IH DAILY PRN 06/16/18 [History] Allopurinol [Zyloprim 100 MG] 200 mg PO DAILY 06/16/18 [History] Aspirin [Lo-Dose Aspirin EC] 81 mg PO DAILY 06/16/18 [History] Cholecalciferol (Vitamin D3) [Vitamin D] 2,000 unit PO DAILY 06/16/18 [History] Fluticasone/Salmeterol [Advair Hfa 115-21 Mcg Inhaler] 2 puff IH BID 06/16/18 [History] Furosemide [Lasix] 40 mg PO DAILY 06/16/18 [History] Isosorbide DInitrate [Isosorbide Dinitrate] 30 mg PO DAILY 06/16/18 [History] Losartan [Cozaar] 50 mg PO DAILY 06/16/18 [History] Pioglitazone [Actos] 30 mg PO DAILY 06/16/18 [History] Simvastatin [Zocor] 40 mg PO HS 06/16/18 [History] amLODIPine [Norvasc] 10 mg PO DAILY 06/16/18 [History] glipiZIDE [Glipizide ER] 10 mg PO BID 06/16/18 [History] Metoprolol Succinate [Toprol Xl] 100 mg PO DAILY 06/17/18 [History] Allergy/AdvReac Type Severity Reaction Status Date / Time morphine Allergy Hives Verified 06/16/18 17:55 Hydromorphone [From Dilaudid] AdvReac Vomiting Verified 06/16/18 17:56 All Systems Review: The remainder of the systems were reviewed and are negative - Cardiovascular Cardiovascular: as per HPI, dyspnea at rest, dyspnea on exertion, leg edema - Respiratory Respiratory: cough Physical Examination Vital Signs, Last 4 Hours Temp Pulse Resp BP Pulse Ox 06/20/18 07:40 18 97 06/20/18 07:00 97.9 F 87 20 135/66 97 General: Conversant, No Apparent Distress HEENT: Atraumatic, Normocephaly, Mucus Membranes Moist Neck: No JVD, Normal carotid pulses Cardiac: Reg Rate and Rhythm, Normal S1 and S2, No Murmur Lungs: Normal Breath Sounds, No Wheeze, Rales, Rhonchi Neuro: Alert and responsive, No focal deficits noted Abdomen: Soft, Non-Tender Skin: No rashes noted on visualized skin Musculoskeletal: No Chest Wall Tenderness Extremities: No Clubbing, No Cyanosis, Normal Pulses, Other (Mild bilateral lower extremity non-pitting edema noted. ) Results 06/20/18 03:05 06/20/18 03:05 Lab Results Impressions Abdomen Ultrasound 06/19/18 15:53 IMPRESSION: No evidence of ascites. Bilateral renal cysts measuring up to 3.5 cm. D/ / Chris Multani MD / Chris Multani MD Interpreting Provider: Chris Multani MD Active Medications Acetaminophen (Tylenol) 650 mg PO Q6HR PRN PRN Reason: Mild Pain/Fever Stop: 12/16/18 17:43 Albuterol/Ipratropium (Duoneb) 3 ml IH [id number] [facility] Stop: 12/16/18 20:01 Last Admin: 06/20/18 07:40 Dose: 3 ml Albuterol/Ipratropium (Duoneb) 3 ml IH [id number] PRN PRN Reason: Shortness Of Breath/Wheezing Stop: 12/16/18 17:45 Allopurinol (Zyloprim) 200 mg PO DAILY [facility] Stop: 12/17/18 09:01 Last Admin: 06/20/18 08:09 Dose: 200 mg Amlodipine Besylate (Norvasc) 10 mg PO DAILY [facility]; Protocol Stop: 12/17/18 09:01 Last Admin: 06/20/18 08:09 Dose: 10 mg Aspirin (Aspirin) 81 mg PO DAILY [facility] Stop: 12/17/18 09:01 Last Admin: 06/20/18 08:10 Dose: 81 mg Azithromycin (Zithromax) 250 mg PO Q24H [facility] Stop: 12/19/18 18:01 Last Admin: 06/19/18 18:21 Dose: 250 mg Budesonide/Formoterol Fumarate (Symbicort) 2 puff IH BIDR [facility]; Protocol Stop: 12/16/18 22:01 Last Admin: 06/20/18 07:40 Dose: 2 puff Dextrose/Water (Dextrose 50% (Syg)) 25 ml IVP AD PRN PRN Reason: Hypoglycemia Stop: 12/16/18 17:46 Furosemide (Lasix) 40 mg IVP DAILY [facility] Stop: 12/18/18 09:01 Last Admin: 06/19/18 08:53 Dose: 40 mg Glucagon (Glucagen) 1 mg IM ONCE PRN PRN Reason: Hypoglycemia Stop: 12/16/18 17:46 Glucose (Gluctose) 15 gm PO ONCE PRN PRN Reason: Hypoglycemia Stop: 12/16/18 17:46 Glucose (Gluctose) 30 gm PO ONCE PRN PRN Reason: Hypoglycemia Stop: 12/16/18 17:46 Guaifenesin (Mucinex D) 1 each PO BID [facility]; Protocol Stop: 12/18/18 21:01 Last Admin: 06/20/18 08:10 Dose: 1 each Heparin Sodium (Porcine) (Heparin) 5,000 unit SQ Q12HCO [facility] Stop: 12/16/18 18:01 Last Admin: 06/20/18 06:05 Dose: 5,000 unit Dextrose (Dextrose 5%) 1,000 mls @ 100 mls/hr IVC .Q10H PRN PRN Reason: HYPOGLYCEMIA Stop: 12/16/18 17:46 Albumin Human (Flexbumin) 25 gm in 100 mls @ 60 mls/hr IVPB DAILY [facility] Stop: 12/19/18 13:16 Last Admin: 06/20/18 08:10 Dose: 60 mls/hr Insulin Detemir (Levemir) 5 unit SQ BID [facility] Stop: 12/18/18 21:01 Last Admin: 06/20/18 08:16 Dose: 5 unit Insulin Human Lispro (Humalog) 0 units SQ HS [facility]; Protocol Stop: 12/17/18 21:01 Last Admin: 06/19/18 21:09 Dose: 6 unit Insulin Human Lispro (Humalog) 0 units SQ TIDAC [facility]; Protocol Stop: 12/17/18 16:31 Last Admin: 06/20/18 08:17 Dose: 10 units Isosorbide Mononitrate (Imdur) 30 mg PO DAILY [facility] Stop: 12/17/18 09:01 Last Admin: 06/20/18 08:10 Dose: 30 mg Metoprolol Succinate (Toprol Xl) 100 mg PO DAILY [facility] Stop: 12/17/18 09:01 Last Admin: 06/20/18 08:10 Dose: 100 mg Multi-Ingredient Mucositis [place] (Chloraseptic) 2 spray MM QID PRN PRN Reason: Sore Throat Stop: 12/17/18 11:43 Last Admin: 06/20/18 06:14 Dose: 2 spray Naloxone HCl (Narcan) 0.4 mg IVP Q2MIN PRN PRN Reason: SEE COMMENTS Stop: 12/16/18 17:41 Polyethylene Glycol (Miralax) 17 gm PO DAILY PRN PRN Reason: Constipation Stop: 12/19/18 12:12 Prednisone (Prednisone) 40 mg PO DAILY [facility] Stop: 12/20/18 09:01 Last Admin: 06/20/18 08:09 Dose: 40 mg Tramadol HCl (Ultram) 50 mg PO Q6HR PRN PRN Reason: Moderate Pain Stop: 12/16/18 17:43 Vitamin D (Vitamin D) 1,000 unit PO DAILY [facility] Stop: 12/17/18 09:01 Last Admin: 06/20/18 08:10 Dose: 1,000 unit Laboratory Tests 06/16/18 06/16/18 06/19/18 15:41 15:41 03:34 Hgb Creatinine 2.67 H 3.85 H Troponin I < 0.03 B-Natriuretic Peptide 361 H 06/20/18 06/20/18 03:05 03:05 Hgb 9.4 L Creatinine 3.43 H Troponin I B-Natriuretic Peptide - Imaging and Cardiology Chest Xray: report reviewed Echo: report reviewed - EKG Interpretation EKG results cardiology: personally reviewed (ECG with SR, HR 73. Non-specific ST and T wave abnormalities noted, similar to previous ECG.), other (Telemetry reviewed with average HR previous 12 hours noted to be 87, SR. PVCs and PACs noted.) Consult Discharge Plan - Plan Referrals: Dago London DO [Primary Care Provider] -
[2018-06-20] MEDS: Furosemide 40 MG/4 ML VIAL IVP SCH (10:11)
--- NOTE | 2018-06-20 13:26 | Urology - Consult Note ---
<Chelsey Dickey N - Last Filed: 06/20/18 13:24> Date of Encounter: 06/20/18 Time of Encounter: 13:24 - Assessment and Plan (1) Urinary retention Current Visit: Yes Status: Acute Assessment and plan: Patient is an 87-year-old male who presents with the history of acute urinary retention. Nursing staff placed indwelling Gross catheter and is sufficiently draining clear urine into bedside bag. Patient has not tried Flomax in the past, but he is willing to try Flomax in order to improve hesitancy and urine flow. We will start Flomax 0.4mg daily and continue indwelling Gross for 1 week. We will plan to proceed with voiding trial and possible catheter removal as an outpatient within 1 week. Patient and his family were counseled on side effects of Flomax including lightheadedness and dizziness. Urology CN:[facility] Consult date: 06/20/18 Reason for consult Urology: Other (Acute urinary retention) History of present illness: Patient is an 87-year-old male who presents with the history of acute urinary retention. Patient was admitted on 06/16/2018 for CHF exacerbation and has multiple comorbidities including COPD, CABG 2, 1 cardiac stent and chronically on 2 L nasal cannula, CKD, DMII. Patient was diuresed with IV Lasix and subsequently experienced inability to urinate. Patient does admit to experiencing some baseline urinary hesitancy but has never experienced acute urinary retention in the past. Patient denies any known prior history, including prostate cancer, renal stones, gross hematuria. Patient denies any known family history of prostate cancer renal stones or cancer. Patient does not follow with a urologist and has not undergone PSA testing for greater than 5 years. Currently, patient has an indwelling Gross catheter that is draining clear urine into bedside bag. Patient denies catheter discomfort or feeling of obstruction. Past Med Surg Social Fam HX - Past Medical History Medical history: COPD, coronary artery disease, diabetes, hyperlipidemia, hypertension, myocardial infarction, renal disease Psychiatric history: no psych history - Past Surgical History Surgical History: cholecystectomy Additional surgical history: CABG X2, bilateral knee replacement, cardiac stent - Social History Smoking Status: Never smoker Smokeless Tobacco Status: No Alcohol use: none Drug use: none - Family History Mother Hx Family Cardiac Disorders: Yes Medications and Allergies Albuterol Sulfate [Proair Hfa] 2 puff IH DAILY PRN 06/16/18 [History] Allopurinol [Zyloprim 100 MG] 200 mg PO DAILY 06/16/18 [History] Aspirin [Lo-Dose Aspirin EC] 81 mg PO DAILY 06/16/18 [History] Cholecalciferol (Vitamin D3) [Vitamin D] 2,000 unit PO DAILY 06/16/18 [History] Fluticasone/Salmeterol [Advair Hfa 115-21 Mcg Inhaler] 2 puff IH BID 06/16/18 [History] Furosemide [Lasix] 40 mg PO DAILY 06/16/18 [History] Isosorbide DInitrate [Isosorbide Dinitrate] 30 mg PO DAILY 06/16/18 [History] Losartan [Cozaar] 50 mg PO DAILY 06/16/18 [History] Pioglitazone [Actos] 30 mg PO DAILY 06/16/18 [History] Simvastatin [Zocor] 40 mg PO HS 06/16/18 [History] amLODIPine [Norvasc] 10 mg PO DAILY 06/16/18 [History] glipiZIDE [Glipizide ER] 10 mg PO BID 06/16/18 [History] Metoprolol Succinate [Toprol Xl] 100 mg PO DAILY 06/17/18 [History] Allergy/AdvReac Type Severity Reaction Status Date / Time morphine Allergy Hives Verified 06/16/18 17:55 Hydromorphone [From Dilaudid] AdvReac Vomiting Verified 06/16/18 17:56 Review of Systems - Constitutional no chills, no fatigue, no fever(s) - EENT Nose, mouth and throat: no dizziness, no headache(s) - Cardiovascular no chest pain, no diaphoresis, no dyspnea - Respiratory cough, no dyspnea - Gastrointestinal no abdominal pain, no nausea, no vomiting - Genitourinary change in urinary stream, difficulty urinating, urinary hesitancy, no dysuria, no flank pain, no hematuria, no urinary frequency, no urinary incontinence, no urinary urgency - Musculoskeletal no back pain, no muscle weakness - Integumentary no erythema, no rash, no swelling - Neurological no confusion, no sensory deficit - Psychiatric no anxiety, no confusion - Hematologic/Lymphatic no easy bleeding, no easy bruising - Allergic/Immunologic no throat swelling, no wheezing Exam Initial Vital Signs Temp Pulse Resp BP Pulse Ox 97.7 F 77 20 153/78 89 11/03/18 15:05 06/16/18 15:05 06/16/18 15:05 06/16/18 15:05 06/16/18 15:05 - General physical appearance Present: well developed, well nourished, no distress, no pain - Eyes Present: PERRL, normal ocular movement - ENT Present: normal nares, no hearing loss, no congestion - Neck Present: no masses, trachea midline - Respiratory Present: normal respiratory effort - Cardiovascular Cardiovascular exam IM: RRR - Abdomen Abdomen: Present: soft, non tender - Genitourinary other (Urine is clear and draining into bedside bag) - Integumentary Present: no rash, no abnormal pigmentation - Neurologic Present: normal coordination - Musculoskeletal Present: other (Normal posture) Urology Results - Labs 06/20/18 03:05 06/20/18 03:05 Abnormal lab results RBC 3.10 M/mcL (4.19-5.50) L 06/20/18 03:05 Hgb 9.4 g/dL (12.9-16.9) L 06/20/18 03:05 Hct 29.1 % (37.5-50.1) L 06/20/18 03:05 Lymphocytes # 0.4 K/mcL (0.6-4.6) L 06/17/18 04:50 Sodium 135 mEq/L (136-145) L 06/20/18 03:05 BUN 83 mg/dL (8-23) H 06/20/18 03:05 Creatinine 3.43 mg/dL (0.70-1.30) H 06/20/18 03:05 Est GFR ( Amer) 21 (> 60) L 06/20/18 03:05 Est GFR (Non-Af Amer) 17 (> 60) L 06/20/18 03:05 Glucose 251 mg/dL (70-105) H 06/20/18 03:05 POC Glucose 285 mg/dL (70-99) H 06/19/18 20:51 Calculated Osmolality 314 (280-300) H 06/20/18 03:05 B-Natriuretic Peptide 361 pg/mL (Less than 100) H 06/16/18 15:41 Diabetes panel 06/20/18 Range/Units 03:05 Sodium 135 L (136-145) mEq/L Potassium 5.0 (3.5-5.1) mEq/L Chloride 98 (98-107) mEq/L Carbon Dioxide 29 (23-29) mEq/L BUN 83 H (8-23) mg/dL Creatinine 3.43 H (0.70-1.30) mg/dL Glucose 251 H (70-105) mg/dL Calcium 8.8 (8.6-10.3) mg/dL Calcium panel 06/20/18 Range/Units 03:05 Calcium 8.8 (8.6-10.3) mg/dL Pituitary panel 06/20/18 Range/Units 03:05 Sodium 135 L (136-145) mEq/L Potassium 5.0 (3.5-5.1) mEq/L Chloride 98 (98-107) mEq/L Carbon Dioxide 29 (23-29) mEq/L BUN 83 H (8-23) mg/dL Creatinine 3.43 H (0.70-1.30) mg/dL Glucose 251 H (70-105) mg/dL Calcium 8.8 (8.6-10.3) mg/dL Adrenal panel 06/20/18 Range/Units 03:05 Sodium 135 L (136-145) mEq/L Potassium 5.0 (3.5-5.1) mEq/L Chloride 98 (98-107) mEq/L Carbon Dioxide 29 (23-29) mEq/L BUN 83 H (8-23) mg/dL Creatinine 3.43 H (0.70-1.30) mg/dL Glucose 251 H (70-105) mg/dL Calcium 8.8 (8.6-10.3) mg/dL All other labs normal. Consult Discharge Plan - Plan Referrals: Dago London DO [Primary Care Provider] - <Abdiaziz Zimmerman - Last Filed: 06/21/18 08:27> Date of Encounter: 06/20/18 - Assessment and Plan (1) Urinary retention Current Visit: Yes Status: Acute Assessment and plan: Seen and examined independently. Agree with plan of GRAEME Dickey. Exam Initial Vital Signs Temp Pulse Resp BP Pulse Ox 97.7 F 77 20 153/78 89 06/16/18 15:05 06/16/18 15:05 06/16/18 15:05 06/16/18 15:05 06/16/18 15:05 Urology Results - Labs 06/21/18 03:08 06/21/18 03:08 Abnormal lab results RBC 3.13 M/mcL (4.19-5.50) L 06/21/18 03:08 Hgb 9.5 g/dL (12.9-16.9) L 06/21/18 03:08 Hct 29.4 % (37.5-50.1) L 06/21/18 03:08 Lymphocytes # 0.4 K/mcL (0.6-4.6) L 06/17/18 04:50 BUN 82 mg/dL (8-23) H 06/21/18 03:08 Creatinine 2.85 mg/dL (0.70-1.30) H 06/21/18 03:08 Est GFR ( Amer) 26 (> 60) L 06/21/18 03:08 Est GFR (Non-Af Amer) 21 (> 60) L 06/21/18 03:08 BUN/Creatinine Ratio 29 (6-26) H 06/21/18 03:08 Glucose 213 mg/dL (70-105) H 06/21/18 03:08 POC Glucose 275 mg/dL (70-99) H 06/20/18 20:56 Calculated Osmolality 317 (280-300) H 06/21/18 03:08 B-Natriuretic Peptide 361 pg/mL (Less than 100) H 06/16/18 15:41 Diabetes panel 06/21/18 Range/Units 03:08 Sodium 138 (136-145) mEq/L Potassium 5.1 (3.5-5.1) mEq/L Chloride 100 (98-107) mEq/L Carbon Dioxide 27 (23-29) mEq/L BUN 82 H (8-23) mg/dL Creatinine 2.85 H (0.70-1.30) mg/dL Glucose 213 H (70-105) mg/dL Calcium 8.9 (8.6-10.3) mg/dL Calcium panel 06/21/18 Range/Units 03:08 Calcium 8.9 (8.6-10.3) mg/dL Pituitary panel 06/21/18 Range/Units 03:08 Sodium 138 (136-145) mEq/L Potassium 5.1 (3.5-5.1) mEq/L Chloride 100 (98-107) mEq/L Carbon Dioxide 27 (23-29) mEq/L BUN 82 H (8-23) mg/dL Creatinine 2.85 H (0.70-1.30) mg/dL Glucose 213 H (70-105) mg/dL Calcium 8.9 (8.6-10.3) mg/dL Adrenal panel 06/21/18 Range/Units 03:08 Sodium 138 (136-145) mEq/L Potassium 5.1 (3.5-5.1) mEq/L Chloride 100 (98-107) mEq/L Carbon Dioxide 27 (23-29) mEq/L BUN 82 H (8-23) mg/dL Creatinine 2.85 H (0.70-1.30) mg/dL Glucose 213 H (70-105) mg/dL Calcium 8.9 (8.6-10.3) mg/dL All other labs normal.
[2018-06-21] MEDS: Ipratropium/Albuterol Neb 3 ML IH SCH ×3 (03:36→11:35)
[2018-06-21 04:12] LABS: Hematocrit 29.4 % (37.5-50.1); Hemoglobin 9.5 g/dL (12.9-16.9); Mean Corpuscular HGB Conc 32.3 g/dL (31.6-35.5); Mean Corpuscular Hemoglobin 30.4 pg (28.0-33.3); Mean Corpuscular Volume 93.9 fL (83.0-100.0); Mean Platelet Volume 10.9 fL (9.4-12.4); Platelet Count 206 K/mcL (140-400); Red Blood Count 3.13 M/mcL (4.19-5.50); Red Cell Distribution Width 14.4 % (11.5-14.5)
[2018-06-21 04:32] LABS: Calcium 8.9 mg/dL (8.6-10.3); Potassium 5.1 mEq/L (3.5-5.1)
[2018-06-21] MEDS: *HR* Heparin 5,000 UNIT/ML VIAL SQ SCH (05:34)
[2018-06-21 07:20] VITALS: BP 142/74
[2018-06-21] MEDS: Budesonide/Formoterol 80/4.5 MDI IH SCH (07:44)
--- NOTE | 2018-06-21 09:00 | Urology Progress Note ---
Date of Encounter: 06/21/18 Time of Encounter: 08:58 - Assessment and Plan (1) Urinary retention Current Visit: Yes Status: Acute Assessment and plan: Patient is an 87-year-old male who presents the history of acute urinary reten tion. Patient has been started on Flomax. I recommend continuing Flomax until voiding trial. Follow-up appointment, we may discuss continuing with Flomax as a daily regimen. Patient is scheduled for a cystoscopy trial of void on June 28 at [address] Zimmerman. Progress Note Subjective: no new complaints Narrative: Patient seen and examined sitting upright in bed in no apparent distress. Patient denies catheter discomfort or feeling of obstruction. Patient states he started Flomax yesterday evening and has not experienced any adverse effects. Objective Initial Vital Signs Temp Pulse Resp BP Pulse Ox 97.7 F 77 20 153/78 89 06/16/18 15:05 06/16/18 15:05 06/16/18 15:05 06/16/18 15:05 06/16/18 15:05 - General physical appearance Present: well developed, well nourished, no distress, no pain - Respiratory Present: normal expansion, normal respiratory effort - Abdomen Present: soft, non tender - Genitourinary Urine Appearance: Present: Clear - Integumentary Present: no rash, no abnormal pigmentation - Musculoskeletal Present: normal posture - Psychiatric Present: oriented to time, oriented to person, oriented to place, speech is normal, memory intact - Labs 06/21/18 03:08 06/21/18 03:08 Diabetes panel 06/21/18 Range/Units 03:08 Sodium 138 (136-145) mEq/L Potassium 5.1 (3.5-5.1) mEq/L Chloride 100 (98-107) mEq/L Carbon Dioxide 27 (23-29) mEq/L BUN 82 H (8-23) mg/dL Creatinine 2.85 H (0.70-1.30) mg/dL Glucose 213 H (70-105) mg/dL Calcium 8.9 (8.6-10.3) mg/dL Calcium panel 06/21/18 Range/Units 03:08 Calcium 8.9 (8.6-10.3) mg/dL Pituitary panel 06/21/18 Range/Units 03:08 Sodium 138 (136-145) mEq/L Potassium 5.1 (3.5-5.1) mEq/L Chloride 100 (98-107) mEq/L Carbon Dioxide 27 (23-29) mEq/L BUN 82 H (8-23) mg/dL Creatinine 2.85 H (0.70-1.30) mg/dL Glucose 213 H (70-105) mg/dL Calcium 8.9 (8.6-10.3) mg/dL Adrenal panel 06/21/18 Range/Units 03:08 Sodium 138 (136-145) mEq/L Potassium 5.1 (3.5-5.1) mEq/L Chloride 100 (98-107) mEq/L Carbon Dioxide 27 (23-29) mEq/L BUN 82 H (8-23) mg/dL Creatinine 2.85 H (0.70-1.30) mg/dL Glucose 213 H (70-105) mg/dL Calcium 8.9 (8.6-10.3) mg/dL Consult Discharge Plan - Plan Referrals: Dago London DO [Primary Care Provider] -
[2018-06-21] MEDS: Aspirin 81 MG TAB.CHEW PO SCH (09:37)
[2018-06-21] MEDS: Cholecalciferol (D-3) 1,000 UNIT TABLET PO SCH (09:37)
[2018-06-21] MEDS: amLODIPine 5 MG TABLET PO SCH (09:38)
[2018-06-21] MEDS: GuaiFENesin/Pseudophedrine TABLET PO SCH (09:38)
[2018-06-21] MEDS: Metoprolol XL (24 HR) Succ 50 MG TAB.ER.24H PO SCH (09:38)
[2018-06-21] MEDS: Isosorbide MONOnitrate (24 HR) 30 MG TAB.ER.24H PO SCH (09:39)
[2018-06-21] MEDS: predniSONE 20 MG TABLET PO SCH (09:39)
[2018-06-21] MEDS: Furosemide 40 MG/4 ML VIAL IVP SCH (09:39)
[2018-06-21] MEDS: Albumin 25% 25gram/100mL 25 GM/100 ML IV.SOLN IVPB SCH (09:40)
[2018-06-21] MEDS: Insulin LISPRO 300 UNITS/3 ML VIAL SQ SCH ×2 (09:40→11:48)
[2018-06-21] MEDS: Insulin DETEMIR 100 UNIT/ML X5UNITS SQ SCH (09:47)
[2018-06-21] MEDS ORDERED: Furosemide 40 MG/4 ML VIAL IVP SCH (11:00)
--- NOTE | 2018-06-21 12:38 | Discharge Summary ---
- NOTES TO OUTPATIENT PROVIDER Notes to Outpatient Provider: Follow-up with cardiology, nephrology and urology in addition to primary care provider. Orders not resulted at time of discharge: Pending orders 06/16/18 17:20 Culture,Blood [BC] Stat 06/22/18 04:00 BMP [Basic Metabolic Panel] AM 0400 Complete Blood Count w/o Diff [HEME] AM 0400 Date of Encounter: 06/21/18 Time of Encounter: 11:00 - Discharge Diagnosis (1) COPD (chronic obstructive pulmonary disease) Priority: Primary Status: Acute Qualifiers: COPD type: unspecified COPD Qualified Code(s): J44.9 - Chronic obstructive pulmonary disease, unspecified (2) ILD (interstitial lung disease) Priority: Primary Status: Acute (3) Acute on chronic systolic (congestive) heart failure Priority: Primary Status: Acute (4) CKD (chronic kidney disease) stage 4, GFR 15-29 ml/min Priority: Primary Status: Chronic (5) Diabetes mellitus Priority: Secondary Status: Chronic Qualifiers: Diabetes mellitus type: type 2 Diabetes mellitus [facility] insulin use: without intermediate school teacher use Diabetes mellitus complication status: with kidney complications Diabetes mellitus complication detail: with chronic kidney disease Chronic kidney disease stage: stage 4 (severe) Qualified Code(s): E11.22 - Type 2 diabetes mellitus with diabetic chronic kidney disease; N18.4 - Chronic kidney disease, stage 4 (severe) (6) CAD (coronary artery disease) Priority: Secondary Status: Chronic Qualifiers: Coronary Disease-Associated Artery/Lesion type: [place] artery [place] vs. transplanted heart: [place] heart Associated angina: without angina Qualified Code(s): I25.10 - Atherosclerotic heart disease of [place] coronary artery without angina pectoris (7) HTN (hypertension) Priority: Secondary Status: Chronic Qualifiers: Hypertension type: essential hypertension Qualified Code(s): I10 - Essential (primary) hypertension Hospital course: Patient is an 87-year-old female with past medical history significant for COPD, CABG 2, 1 cardiac stent and chronically on 2 L nasal cannula, CKD, CHF, DM presents to the ER for evaluation of 2 weeks of coughing with no improvement. Patient states that he was seen one week ago at an urgent care and given a Z-Sukhwinder and told it was acute bronchitis however his symptoms have not improved. The patient states that he has this continuous cough that will not stop due to like a scratch in his throat. In the ER, CXR showed possible pulmonary edema and peural effusion. He received IV Solu Medro and Duoneb with relief of symptoms. Patient was admitted to the medical surgical floor for COPD exacerbation with acute on chronic systolic heart failure in addition to acute on chronic CKD 3. During patients hospital stay his COPD exacerbation resolved on oral prednisone and IV azithromycin in addition to scheduled DuoNebs. Patient was also treated with IV Lasix for acute on chronic systolic heart failure and his shortness of breath improved. Cardiology was consulted and agreed with management. Nephrology was also consulted for acute on chronic CKD stage IV and his renal function improved with avoiding for nephrotoxic medications. Urology was also consulted for urinary retention which improved after Gross catheter was placed. Patient was started on Flomax. Patient will be discharged to follow-up with cardiology, nephrology and urology ., nephrology and urology. - Time Spent with Patient Total time spent providing and/or coordinating discharge services: Less than 30 minutes - Discharge Medications Prescriptions: Tamsulosin [Flomax] 0.4 mg PO DAILY #30 capsule Home Medications: Albuterol Sulfate [Proair Hfa] 2 puff IH DAILY PRN 06/16/18 [History] Allopurinol [Zyloprim 100 MG] 200 mg PO DAILY 06/16/18 [History] Aspirin [Lo-Dose Aspirin EC] 81 mg PO DAILY 06/16/18 [History] Cholecalciferol (Vitamin D3) [Vitamin D3] 2,000 unit PO DAILY 06/16/18 [History] Fluticasone/Salmeterol [Advair Hfa 115-21 Mcg Inhaler] 2 puff IH BID 06/16/18 [History] Furosemide [Lasix] 40 mg PO DAILY 06/16/18 [History] Isosorbide DInitrate [Isosorbide Dinitrate] 30 mg PO DAILY 06/16/18 [History] Losartan [Cozaar] 50 mg PO DAILY 06/16/18 [History] Pioglitazone [Actos] 30 mg PO DAILY 06/16/18 [History] Simvastatin [Zocor] 40 mg PO HS 06/16/18 [History] amLODIPine [Norvasc] 10 mg PO DAILY 06/16/18 [History] glipiZIDE [Glipizide ER] 10 mg PO BID 06/16/18 [History] Metoprolol Succinate [Toprol Xl] 100 mg PO DAILY 06/17/18 [History] Tamsulosin [Flomax] 0.4 mg PO DAILY #30 capsule 06/21/18 [Rx] Allergies/Adverse Reactions: Allergy/AdvReac Type Severity Reaction Status Date / Time morphine Allergy Hives Verified 06/16/18 17:55 Hydromorphone [From Dilaudid] AdvReac Vomiting Verified 06/16/18 17:56 Date of admission: 06/18/18 17:16 Primary care physician: Dago London Consults: 06/16/18 17:51 Consult to Nephrology [CONS] Routine Consulting Provider: Kidney Susan/JOLENE/SHER/VANDA Reason for Consult: fluid overload, stage 4 CKD Call Completed: Yes 06/16/18 19:22 Consult to Cashier Receptionist [CONS] Routine Reason for SW Consult: Discharge planning, patient with susan home o2. 06/19/18 15:54 Consult to Cardiology [CONS] Routine Comment: Consulting Provider: Cardiology [place] Reason for Consult: Acute on chronic heart failure Call Completed: No 06/20/18 11:50 Consult to Urology [CONS] Routine Consulting Provider: Urology Susan Reason for Consult: Urinary retention Call Completed: No - Constitutional Vitals: Temp Pulse Resp BP Pulse Ox 97.5 F L 83 16 142/74 98 06/21/18 07:14 06/21/18 07:14 06/21/18 11:35 06/21/18 07:14 06/21/18 11:35 General appearance: Present: cooperative, A&O X 3, answers questions appropriately Exam: Gen.: Nonacute distress, alert and oriented 3 Skin: Normal color - Patient Status Disposition: Home Health Service Condition: Fair - Discharge Instructions Instructions: Tamsulosin (By mouth), Heart Failure (DC), Acute Kidney Injury (DC), Anemia (GEN) Follow Up With: Dago London DO [Primary Care Provider] - 06/25/18 11:00 am Estela Ramos [employer] SALES CONSULTANT [Advanced Practice Nurse] - (Dr. Sandoval office will contact patient with follow up apt. ) Abdiaziz Bedoya DO [Partnered Physician] - 07/12/18 1:00 pm Abdiaziz Zimmerman [Partnered Physician] - 06/28/18 11:00 am
--- NOTE | 2018-06-21 12:40 | Physician Discharge Referral ---
Home Health/Hosp Referral Info Transfer to: Home Health - Diagnosis (1) COPD (chronic obstructive pulmonary disease) Status: Acute (2) ILD (interstitial lung disease) Status: Acute (3) Acute on chronic systolic (congestive) heart failure Status: Acute (4) CKD (chronic kidney disease) stage 4, GFR 15-29 ml/min Status: Chronic (5) Diabetes mellitus Status: Chronic (6) CAD (coronary artery disease) Status: Chronic (7) HTN (hypertension) Status: Chronic - Respiratory Orders Smoking Cessation: Smoking cessation has been advised. For more information, call the [place] Tobacco Quit Line at 2-868-ZNES-NOW. - Transfer Medications Prescriptions: Tamsulosin [Flomax] 0.4 mg PO DAILY #30 capsule Home Medications: Albuterol Sulfate [Proair Hfa] 2 puff IH DAILY PRN 06/16/18 [History] Allopurinol [Zyloprim 100 MG] 200 mg PO DAILY 06/16/18 [History] Aspirin [Lo-Dose Aspirin EC] 81 mg PO DAILY 06/16/18 [History] Cholecalciferol (Vitamin D3) [Vitamin D3] 2,000 unit PO DAILY 06/16/18 [History] Fluticasone/Salmeterol [Advair Hfa 115-21 Mcg Inhaler] 2 puff IH BID 06/16/18 [History] Furosemide [Lasix] 40 mg PO DAILY 06/16/18 [History] Isosorbide DInitrate [Isosorbide Dinitrate] 30 mg PO DAILY 06/16/18 [History] Losartan [Cozaar] 50 mg PO DAILY 06/16/18 [History] Pioglitazone [Actos] 30 mg PO DAILY 06/16/18 [History] Simvastatin [Zocor] 40 mg PO HS 06/16/18 [History] amLODIPine [Norvasc] 10 mg PO DAILY 06/16/18 [History] glipiZIDE [Glipizide ER] 10 mg PO BID 06/16/18 [History] Metoprolol Succinate [Toprol Xl] 100 mg PO DAILY 06/17/18 [History] Tamsulosin [Flomax] 0.4 mg PO DAILY #30 capsule 06/21/18 [Rx] Allergies/Adverse Reactions: Allergy/AdvReac Type Severity Reaction Status Date / Time morphine Allergy Hives Verified 06/16/18 17:55 Hydromorphone [From Dilaudid] AdvReac Vomiting Verified 06/16/18 17:56 Certification: Further, I certify that my clinical findings support that this patient is homebound (i.e. absences from home require considerable and taxing effort and are for medical reasons or religion services or infrequently or short duration when for other reasons) because: Homebound Reason: Patient requires assistance of a person or device to safely leave home Attestation: My signature below is to certify that this patient is under my care and that I, or nurse practitioner, or a physician's medication assistant working with me, has a [id number] encounter with this patient.
--- NOTE | 2018-06-21 13:03 | Nephrology Progress Note ---
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 BMP in a week. (2) CKD (chronic kidney disease) stage 4, GFR 15-29 ml/min Current Visit: No Status: Chronic GFR from 19-20s at baseline (3) Anemia Current Visit: Yes Status: Acute Hgb noted at 9.5, will monitor Qualifiers: Anemia type: due to chronic kidney disease Chronic kidney disease stage: stage 4 (severe) Qualified Code(s): N18.4 - Chronic kidney disease, stage 4 (severe); D63.1 - Anemia in chronic kidney disease (4) Acute CHF Current Visit: Yes Status: Acute Resolving Qualifiers: Heart failure type: systolic Qualified Code(s): I50.21 - Acute systolic (congestive) heart failure Subjective Interval history: Pt seen and examined with family at bedside feeling better overall.Family at bedside. Objective - Vital Signs Vital signs: Vital Signs Temp Pulse Resp BP Pulse Ox 06/21/18 11:35 16 98 06/21/18 07:44 16 98 06/21/18 07:14 97.5 F L 83 18 142/74 98 06/21/18 05:33 97.6 F 86 18 138/67 99 06/21/18 03:38 16 99 06/21/18 02:10 97.9 F 86 18 120/70 98 06/20/18 23:40 14 94 06/20/18 20:53 98.6 F 88 18 135/67 97 06/20/18 19:51 16 99 06/20/18 16:26 97.6 F 86 20 133/69 98 06/20/18 15:16 18 98 Intake and Output 06/20/18 06/21/18 06/21/18 23:59 07:59 15:59 Intake Total 790 / 790 0 / 0 360 / 360 Output Total 1750 / 1750 750 / 750 300 / 300 Balance -960 / -960 -750 / -750 60 / 60 Intake: IV Fluids 350 / 350 Flexbumin 25 gm In 100 ml @ 60 100 / 100 mls/hr IVPB DAILY [facility] Rx#: [id number] Oral 440 / 440 0 / 0 360 / 360 Output: Urine 400 / 400 Catheter 1750 / 1750 350 / 350 300 / 300 Other: Meal Dinner Breakfast Percent of Meal Consumed 100% 100% Weight 118.4 kg Blood Glucose* 275 226 251 Patient Weight 06/21/18 23:59 Weight 118.4 kg - General Appearance General appearance: Present: chronically ill (NAD) EENT: Present: ATNC, mucous membranes moist Neck: Present: no JVD, supple Additional Comments: good areation ant bilat Cardiology: Present: edema (trace LE bilatr, improved), normal S1, normal S2 Gastrointestinal: Present: no tenderness, no guarding (soft) Integumentary: Present: warm and dry Neurologic: Present: no focal deficit Musculoskeletal: Present: no deformities Psychiatric: Present: mood/affect appropriate, cooperative - Lab 06/21/18 03:08 06/21/18 03:08 Most recent lab results Calcium 8.9 mg/dL (8.6-10.3) 06/21/18 03:08 Magnesium 1.9 mg/dL (1.6-2.6) 06/17/18 04:50 Consult Discharge Plan - Plan Referrals: Dago London DO [Primary Care Provider] - 06/25/18 11:00 am Estela Ramos, PHARMACOVIGILANCE SPECIALIST [Advanced Practice Nurse] - (Dr. Sandoval office will contact patient with follow up apt. ) Abdiaziz Zimmerman [Partnered Physician] - 06/28/18 11:00 am Ji Flores MD [Partnered Physician] - 07/02/18 1:00 pm Prescriptions: Tamsulosin [Flomax] 0.4 mg PO DAILY #30 capsule
--- NOTE | 2018-06-21 13:23 | Nephrology Progress Note ---
Date of Encounter: 06/20/18 Time of Encounter: 12:00 - Assessment and Plan (1) BLANCA (acute kidney injury) Current Visit: Yes Status: Acute SCr improved at 3.43, GFR 17 at baseline UOP great at 1850cc in the past 24hrs with lasix/albumin Will continue another day Continue to avoid nephrotoxins if possible Urology consult per primary team (2) CKD (chronic kidney disease) stage 4, GFR 15-29 ml/min Current Visit: No Status: Chronic GFR from 19-20s at baseline (3) Anemia Current Visit: Yes Status: Acute Hgb noted at 9.4, will monitor Qualifiers: Anemia type: due to chronic kidney disease Chronic kidney disease stage: stage 4 (severe) Qualified Code(s): N18.4 - Chronic kidney disease, stage 4 (severe); D63.1 - Anemia in chronic kidney disease (4) Acute CHF Current Visit: Yes Status: Acute Continue fluid restrition Continue diuresis Cardio consult per primary team, family requesting Qualifiers: Heart failure type: systolic Qualified Code(s): I50.21 - Acute systolic (congestive) heart failure Subjective Interval history: Pt seen and examined with family at bedside feeling better with improved UOP after duke placed. Less SOB and less abdominal distention. Family at bedside. Objective - Vital Signs Vital signs: Vital Signs Temp Pulse Resp BP Pulse Ox 06/21/18 11:35 16 98 06/21/18 07:44 16 98 06/21/18 07:14 97.5 F L 83 18 142/74 98 06/21/18 05:33 97.6 F 86 18 138/67 99 06/21/18 03:38 16 99 06/21/18 02:10 97.9 F 86 18 120/70 98 06/20/18 23:40 14 94 06/20/18 20:53 98.6 F 88 18 135/67 97 06/20/18 19:51 16 99 06/20/18 16:26 97.6 F 86 20 133/69 98 06/20/18 15:16 18 98 Intake and Output 06/20/18 06/21/18 06/21/18 23:59 07:59 15:59 Intake Total 790 / 790 0 / 0 360 / 360 Output Total 1750 / 1750 750 / 750 300 / 300 Balance -960 / -960 -750 / -750 60 / 60 Intake: IV Fluids 350 / 350 Flexbumin 25 gm In 100 ml @ 60 100 / 100 mls/hr IVPB DAILY KATHY Rx#: [id number] Oral 440 / 440 0 / 0 360 / 360 Output: Urine 400 / 400 Catheter 1750 / 1750 350 / 350 300 / 300 Other: Meal Dinner Breakfast Percent of Meal Consumed 100% 100% Weight 118.4 kg Blood Glucose* 275 226 251 Patient Weight 06/21/18 23:59 Weight 118.4 kg - General Appearance General appearance: Present: chronically ill (NAD) EENT: Present: ATNC, mucous membranes moist Neck: Present: no JVD, supple Additional Comments: improved areation ant bilat Cardiology: Present: edema (LE bilat), normal S1, normal S2 Gastrointestinal: Present: no tenderness, no guarding, obese Integumentary: Present: warm and dry Neurologic: Present: no focal deficit Musculoskeletal: Present: no deformities Psychiatric: Present: mood/affect appropriate, cooperative - Lab 06/21/18 03:08 06/21/18 03:08 Most recent lab results Calcium 8.9 mg/dL (8.6-10.3) 06/21/18 03:08 Magnesium 1.9 mg/dL (1.6-2.6) 06/17/18 04:50 Consult Discharge Plan - Plan Instructions: Tamsulosin (By mouth), Heart Failure (DC), Acute Kidney Injury (DC), Anemia (GEN) Referrals: Dago London DO [Primary Care Provider] - 06/25/18 11:00 am Estela Ramos, [employer] [Advanced Practice Nurse] - (Dr. Sandoval office will contact patient with follow up apt. ) Abdiaziz Zimmerman [Partnered Physician] - 06/28/18 11:00 am Ji Flores MD [Partnered Physician] - 07/02/18 1:00 pm Prescriptions: Tamsulosin [Flomax] 0.4 mg PO DAILY #30 capsule
== END 2018-06-21 14:29 | disposition home health service (06) | DRG 291 ==
LOC: EMEROOARM 15:00 → 2NENU 15:00 → SUATTDRO 17:34 → 2NENU 18:41 → SUATTDRO 06-18 17:16
PROVIDERS: ADMIT Internal Medicine; ATTEND Hospitalist

== ENCOUNTER 2020-02-16 13:07 | Inpatient (IN) ==
[2020-02-16] MEDS ORDERED: Acyclovir 850 MG in D5% in Water 250 ML IVPB ONE (16:00)
[2020-02-16 16:20] LABS: Basophils % 0.7 %; Eosinophils # 0.1 K/mcL (0.0-0.6); Eosinophils % 1.9 %; Hemoglobin 10.7 g/dL (12.9-16.9); Immature Granulocytes % 0.5 % (0-4); Lymphocytes # 1.5 K/mcL (0.6-4.6); Lymphocytes % 25.4 %; Mean Corpuscular HGB Conc 30.6 g/dL (31.6-35.5); Mean Corpuscular Hemoglobin 30.1 pg (28.0-33.3); Mean Corpuscular Volume 98.3 fL (83.0-100.0); Mean Platelet Volume 10.8 fL (9.4-12.4); Monocytes # 0.7 K/mcL (0.0-1.3); Monocytes % 12.9 %; Neutrophils # 3.4 K/mcL (1.6-8.9); Platelet Count 105 K/mcL (140-400); Red Blood Count 3.56 M/mcL (4.19-5.50); Red Cell Distribution Width 14.7 % (11.5-14.5); Segmented Neutrophils % 58.6 %; White Blood Count 5.7 K/mcL (4.3-11.1)
[2020-02-16 16:37] LABS: Large Platelets Present (Not Present); Platelet Estimate Decreased (Normal); Reactive Lymphocytes Present (Not Present)
[2020-02-16 16:40] LABS: Alanine Aminotransferase 14 Units/L (7-52); Albumin 3.8 g/dL (3.5-5.7); Albumin/Globulin Ratio 1.3 (1.1-2.2); Alkaline Phosphatase 71 Units/L (34-104); Aspartate Amino Transferase 20 Units/L (13-39); BUN/Creatinine Ratio 18 (6-26); Bilirubin,Total 0.5 mg/dL (0.3-1.0); Blood Urea Nitrogen 53 mg/dL (8-23); Carbon Dioxide 29 mEq/L (23-29); Chloride 100 mEq/L (98-107); Globulin 2.9 g/dL (2.4-3.5); Glucose 207 mg/dL (70-105); Osmolality,Calculated 306 (280-300); Potassium 4.4 mEq/L (3.5-5.1); Sodium 138 mEq/L (136-145); Total Protein 6.7 g/dL (6.4-8.9); Troponin I < 0.03 ng/mL (< 0.04); eGFR For African Americans 25 (> 60); eGFR For Non-African Americans 21 (> 60)
[2020-02-16] MEDS ORDERED: Naloxone 0.4 MG/ML INJ IVP PRN (17:24)
[2020-02-16] MEDS ORDERED: Ipratropium/Albuterol Neb 3 ML IH PRN (17:26)
[2020-02-16] MEDS: *HR* Heparin 5,000 UNIT/ML VIAL SQ SCH (18:55)
[2020-02-16] MEDS: Insulin LISPRO 300 UNITS/3 ML VIAL SQ SCH (21:14)
[2020-02-17 03:23] LABS: Potassium 4.3 mEq/L (3.5-5.1)
[2020-02-17] MEDS: Acyclovir 850 MG in D5% in Water 250 ML IVPB SCH ×2 (04:04→15:08)
[2020-02-17] MEDS: *HR* Heparin 5,000 UNIT/ML VIAL SQ SCH ×2 (06:05→16:45)
[2020-02-17] MEDS: Insulin LISPRO 300 UNITS/3 ML VIAL SQ SCH ×4 (07:32→20:52)
[2020-02-17 09:59] LABS: Estimated Average Glucose 169 mg/dl
[2020-02-18 03:46] LABS: Basophils % 0.7 %; Eosinophils # 0.3 K/mcL (0.0-0.6); Eosinophils % 6.5 %; Hematocrit 33.6 % (37.5-50.1); Hemoglobin 10.6 g/dL (12.9-16.9); Immature Granulocytes % 0.7 % (0-4); Lymphocytes # 1.3 K/mcL (0.6-4.6); Lymphocytes % 30.7 %; Mean Corpuscular HGB Conc 31.5 g/dL (31.6-35.5); Mean Corpuscular Hemoglobin 30.5 pg (28.0-33.3); Mean Corpuscular Volume 96.6 fL (83.0-100.0); Mean Platelet Volume 10.8 fL (9.4-12.4); Monocytes # 0.6 K/mcL (0.0-1.3); Neutrophils # 2.1 K/mcL (1.6-8.9); Red Blood Count 3.48 M/mcL (4.19-5.50); Red Cell Distribution Width 14.3 % (11.5-14.5); Segmented Neutrophils % 48.4 %; White Blood Count 4.3 K/mcL (4.3-11.1)
[2020-02-18 03:49] LABS: Platelet Count 92 K/mcL (140-400)
[2020-02-18 04:11] LABS: Calcium 8.3 mg/dL (8.6-10.3); Potassium 4.6 mEq/L (3.5-5.1)
[2020-02-18] MEDS: *HR* Heparin 5,000 UNIT/ML VIAL SQ SCH (04:18)
[2020-02-18] MEDS: Acyclovir 850 MG in D5% in Water 250 ML IVPB SCH ×2 (05:27→15:17)
[2020-02-18] MEDS: Insulin LISPRO 300 UNITS/3 ML VIAL SQ SCH ×2 (08:42→12:27)
[2020-02-18] MEDS ORDERED: Metoprolol XL (24 HR) Succ 50 MG TAB.ER.24H PO SCH (09:00)
[2020-02-18] MEDS ORDERED: amLODIPine 5 MG TABLET PO SCH (09:00)
[2020-02-18] MEDS ORDERED: allopurinoL 100 MG TABLET PO SCH (09:00)
[2020-02-18] MEDS ORDERED: Tiotropium 18 MCG inhalation IH SCH (10:00)
[2020-02-18] MEDS ORDERED: Budesonide/Formoterol 160/4.5 1 PUFF INH IH SCH (10:00)
[2020-02-18 14:56] VITALS: BP 150/73
== END 2020-02-18 19:07 | disposition home or self-care (01) | DRG 124 ==
LOC: EMEROOARM 13:07 → 3BNU 13:07 → SUATTDRO 02-17 19:15
PROVIDERS: ADMIT Internal Medicine; ATTEND Student in an Organized Health Care Education/Training Program